=== PATIENT | male | born 1980 | race Caucasian/White ===

== ENCOUNTER 2017-11-28 14:37 | Inpatient (IN) | payer OTHER ==
[~2017-11-28] VITALS: Ht 180.3 cm; Wt 159.3 kg
[~2017-11-28 14:37] MED LIST: ALBU90OI INH; Advair Hfa 230-12 GM INH; DOXY100 PO; FLUT110OIA INH; HYDCOR1TO TOP; LEVO750 PO; LOSA25 PO; METF500 PO; Norco 5-325 Ta1 EACH PO; PRED10 PO; PRED20 PO; Prednisone20 MG PO; TIOT18 INH
[2017-11-28 16:20] LABS: BASOPHILS ABSOLUTE AUTO 0.02 K/mm3 (0.00-0.23); BASOPHILS PERCENT AUTO 0 % (0-2); EOSINOPHILS ABSOLUTE AUTO 0.02 K/mm3 (0.00-0.68); EOSINOPHILS PERCENT AUTO 0 % (0-6); Hematocrit 35.4 % (37.0-53.0); Hemoglobin 11.8 g/dL (13.5-17.5); IMMATURE GRAN ABSOLUTE AUTO 0.02 K/mm3 (0.00-0.10); IMMATURE GRAN PERCENT AUTO 0 % (0-1); LYMPHOCYTES PERCENT AUTO 11 % (21-46); MONOCYTES ABSOLUTE AUTO 0.47 K/mm3 (0.16-1.47); MONOCYTES PERCENT AUTO 5 % (4-13); Mean Corpuscular HGB Conc 33.3 g/dL (31.5-36.5); Mean Corpuscular Volume 84 fL (80-100); Mean Platelet Volume 9.2 fL (9.1-12.4); NEUTROPHILS ABSOLUTE AUTO 7.58 K/mm3 (1.96-9.15); NEUTROPHILS PERCENT AUTO 83 % (41-73); Platelet Count 208 K/mm3 (150-400); RDW Coefficient Variation 14.5 % (11.7-14.2); RDW Standard Deviation 44.8 fL (35.1-46.3); Red Blood Cell Count 4.22 M/mm3 (4.30-5.90); White Blood Cell Count 9.11 K/mm3 (4.00-11.30)
[2017-11-28 16:45] LABS: Alanine Aminotransfer (ALT/SGP 18 U/L (12-78); Albumin/Globulin Ratio 0.7 (0.8-1.8); Alk Phos 106 U/L (50-136); Anion Gap 9 mmol/L (6-16); Aspartate Aminotrans (AST/SGOT 22 U/L (12-37); Bilirubin, Total 1.7 mg/dL (0.1-1.0); Blood Urea Nitrogen 17 mg/dL (8-24); Bun/Creatinine Ratio 19.1 (12.0-20.0); CO2, Blood 24 mmol/L (21-32); Calcium, Blood 8.4 mg/dL (8.5-10.1); Chloride, Blood 97 mmol/L (98-108); Creatinine, Blood 0.89 mg/dL (0.60-1.20); Globulin, Blood 4.3 g/dL (2.2-4.0); Glomerular Filtration Rate >60 (60-); Glucose, Blood 119 mg/dL (70-99); Potassium, Blood 3.4 mmol/L (3.5-5.5); Sodium, Blood 130 mmol/L (136-145); Total Protein, Blood 7.3 g/dL (6.4-8.2)
[2017-11-28] MEDS ORDERED: AMLO5 PO (18:35)
[2017-11-28] MEDS ORDERED: ATOR40TA PO (18:35)
[2017-11-28 20:07] LABS: C-REACTIVE PROTEIN, EXT RANGE >19.000 mg/dL (0.000-0.300)
[2017-11-28] MEDS ORDERED: BUDE6HFA INH (22:28)
[2017-11-29 05:40] LABS: BASOPHILS ABSOLUTE AUTO 0.01 K/mm3 (0.00-0.23); BASOPHILS PERCENT AUTO 0 % (0-2); EOSINOPHILS ABSOLUTE AUTO 0.02 K/mm3 (0.00-0.68); EOSINOPHILS PERCENT AUTO 0 % (0-6); Hematocrit 33.3 % (37.0-53.0); Hemoglobin 10.8 g/dL (13.5-17.5); IMMATURE GRAN ABSOLUTE AUTO 0.03 K/mm3 (0.00-0.10); IMMATURE GRAN PERCENT AUTO 0 % (0-1); LYMPHOCYTES ABSOLUTE AUTO 1.31 K/mm3 (0.84-5.20); LYMPHOCYTES PERCENT AUTO 18 % (21-46); MONOCYTES ABSOLUTE AUTO 0.55 K/mm3 (0.16-1.47); MONOCYTES PERCENT AUTO 8 % (4-13); Mean Corpuscular HGB 27.4 pg (26.0-34.0); Mean Corpuscular HGB Conc 32.4 g/dL (31.5-36.5); Mean Corpuscular Volume 85 fL (80-100); Mean Platelet Volume 9.4 fL (9.1-12.4); NEUTROPHILS ABSOLUTE AUTO 5.43 K/mm3 (1.96-9.15); NEUTROPHILS PERCENT AUTO 74 % (41-73); Platelet Count 203 K/mm3 (150-400); RDW Coefficient Variation 14.4 % (11.7-14.2); RDW Standard Deviation 44.6 fL (35.1-46.3); Red Blood Cell Count 3.94 M/mm3 (4.30-5.90); White Blood Cell Count 7.35 K/mm3 (4.00-11.30)
[2017-11-29 06:03] LABS: Anion Gap 10 mmol/L (6-16); Blood Urea Nitrogen 14 mg/dL (8-24); Bun/Creatinine Ratio 16.1 (12.0-20.0); CO2, Blood 23 mmol/L (21-32); Calcium, Blood 8.1 mg/dL (8.5-10.1); Chloride, Blood 99 mmol/L (98-108); Creatinine, Blood 0.87 mg/dL (0.60-1.20); Glomerular Filtration Rate >60 (60-); Glucose, Blood 138 mg/dL (70-99); Potassium, Blood 3.7 mmol/L (3.5-5.5); Sodium, Blood 132 mmol/L (136-145)
[2017-11-30 08:29] LABS: BASOPHILS ABSOLUTE AUTO 0.03 K/mm3 (0.00-0.23); BASOPHILS PERCENT AUTO 0 % (0-2); EOSINOPHILS ABSOLUTE AUTO 0.08 K/mm3 (0.00-0.68); EOSINOPHILS PERCENT AUTO 1 % (0-6); Hematocrit 34.9 % (37.0-53.0); IMMATURE GRAN ABSOLUTE AUTO 0.06 K/mm3 (0.00-0.10); IMMATURE GRAN PERCENT AUTO 1 % (0-1); LYMPHOCYTES ABSOLUTE AUTO 1.77 K/mm3 (0.84-5.20); LYMPHOCYTES PERCENT AUTO 23 % (21-46); MONOCYTES ABSOLUTE AUTO 0.68 K/mm3 (0.16-1.47); MONOCYTES PERCENT AUTO 9 % (4-13); Mean Corpuscular HGB 27.8 pg (26.0-34.0); Mean Corpuscular HGB Conc 31.5 g/dL (31.5-36.5); Mean Platelet Volume 9.7 fL (9.1-12.4); NEUTROPHILS ABSOLUTE AUTO 5.19 K/mm3 (1.96-9.15); NEUTROPHILS PERCENT AUTO 66 % (41-73); Platelet Count 206 K/mm3 (150-400); RDW Coefficient Variation 14.7 % (11.7-14.2); RDW Standard Deviation 47.5 fL (35.1-46.3); Red Blood Cell Count 3.95 M/mm3 (4.30-5.90); White Blood Cell Count 7.81 K/mm3 (4.00-11.30)
[2017-11-30 08:30] LABS: Mean Corpuscular Volume 88 fL (80-100)
[2017-11-30 08:43] LABS: Bun/Creatinine Ratio 9.8 (12.0-20.0); Calcium, Blood 8.2 mg/dL (8.5-10.1); Creatinine, Blood 2.86 mg/dL (0.60-1.20); Potassium, Blood 3.9 mmol/L (3.5-5.5)
[2017-11-30 08:48] LABS: Vancomycin, Trough 34.7 ug/mL (5.0-10.0)
[2017-11-30 17:55] LABS: Creatinine, Blood 3.57 mg/dL (0.60-1.20); Potassium, Blood 4.4 mmol/L (3.5-5.5)
[2017-12-01 06:02] LABS: Albumin, Blood 2.6 g/dL (3.4-5.0); Anion Gap 8 mmol/L (6-16); Blood Urea Nitrogen 36 mg/dL (8-24); Bun/Creatinine Ratio 8.9 (12.0-20.0); CO2, Blood 24 mmol/L (21-32); Calcium, Blood 8.2 mg/dL (8.5-10.1); Chloride, Blood 96 mmol/L (98-108); Creatinine, Blood 4.06 mg/dL (0.60-1.20); Glomerular Filtration Rate 18 (60-); Glucose, Blood 97 mg/dL (70-99); Phosphorus, Blood 5.6 mg/dL (2.5-4.9); Potassium, Blood 4.3 mmol/L (3.5-5.5); Sodium, Blood 128 mmol/L (136-145); Vancomycin, Random 27.4 ug/mL
[2017-12-01 14:44] LABS: Albumin, Blood 2.7 g/dL (3.4-5.0); Anion Gap 11 mmol/L (6-16); Blood Urea Nitrogen 38 mg/dL (8-24); Bun/Creatinine Ratio 8.9 (12.0-20.0); CO2, Blood 21 mmol/L (21-32); CPK Creatine Kinase 17 U/L (39-308); Calcium, Blood 8.3 mg/dL (8.5-10.1); Chloride, Blood 99 mmol/L (98-108); Creatinine, Blood 4.26 mg/dL (0.60-1.20); Glomerular Filtration Rate 17 (60-); Glucose, Blood 101 mg/dL (70-99); Phosphorus, Blood 5.5 mg/dL (2.5-4.9); Potassium, Blood 4.3 mmol/L (3.5-5.5); Sodium, Blood 131 mmol/L (136-145); Uric Acid, Blood 9.5 mg/dL (3.5-7.2)
[2017-12-01 14:47] LABS: Thyroid Stimulating Hormone 0.829 uIU/mL (0.360-4.800)
[2017-12-02 05:22] LABS: BASOPHILS ABSOLUTE AUTO 0.02 K/mm3 (0.00-0.23); BASOPHILS PERCENT AUTO 0 % (0-2); EOSINOPHILS ABSOLUTE AUTO 0.11 K/mm3 (0.00-0.68); EOSINOPHILS PERCENT AUTO 1 % (0-6); Hematocrit 32.7 % (37.0-53.0); Hemoglobin 10.4 g/dL (13.5-17.5); IMMATURE GRAN ABSOLUTE AUTO 0.05 K/mm3 (0.00-0.10); IMMATURE GRAN PERCENT AUTO 1 % (0-1); LYMPHOCYTES ABSOLUTE AUTO 1.36 K/mm3 (0.84-5.20); LYMPHOCYTES PERCENT AUTO 18 % (21-46); MONOCYTES ABSOLUTE AUTO 0.56 K/mm3 (0.16-1.47); MONOCYTES PERCENT AUTO 7 % (4-13); Mean Corpuscular HGB 27.3 pg (26.0-34.0); Mean Corpuscular HGB Conc 31.8 g/dL (31.5-36.5); Mean Corpuscular Volume 86 fL (80-100); Mean Platelet Volume 9.3 fL (9.1-12.4); NEUTROPHILS PERCENT AUTO 73 % (41-73); Platelet Count 314 K/mm3 (150-400); RDW Coefficient Variation 14.6 % (11.7-14.2); RDW Standard Deviation 46.2 fL (35.1-46.3); Red Blood Cell Count 3.81 M/mm3 (4.30-5.90)
[2017-12-02 05:58] LABS: Albumin, Blood 2.6 g/dL (3.4-5.0); Anion Gap 10 mmol/L (6-16); Blood Urea Nitrogen 40 mg/dL (8-24); Bun/Creatinine Ratio 8.8 (12.0-20.0); CO2, Blood 22 mmol/L (21-32); Calcium, Blood 8.2 mg/dL (8.5-10.1); Chloride, Blood 101 mmol/L (98-108); Creatinine, Blood 4.52 mg/dL (0.60-1.20); Glomerular Filtration Rate 16 (60-); Glucose, Blood 98 mg/dL (70-99); Phosphorus, Blood 5.9 mg/dL (2.5-4.9); Potassium, Blood 4.5 mmol/L (3.5-5.5); Sodium, Blood 133 mmol/L (136-145)
[2017-12-02 11:42] LABS: Eosinophils-Raw #,Urine 0
[2017-12-02 11:43] LABS: White Blood Cells Urine Rare /hpf (0-5)
[2017-12-02 20:18] LABS: Protein, Urine Quantitative 12.9 mg/dL (0.0-11.9)
[2017-12-03 05:18] LABS: BASOPHILS ABSOLUTE AUTO 0.03 K/mm3 (0.00-0.23); BASOPHILS PERCENT AUTO 0 % (0-2); EOSINOPHILS ABSOLUTE AUTO 0.09 K/mm3 (0.00-0.68); EOSINOPHILS PERCENT AUTO 1 % (0-6); Hematocrit 31.8 % (37.0-53.0); Hemoglobin 10.3 g/dL (13.5-17.5); IMMATURE GRAN ABSOLUTE AUTO 0.08 K/mm3 (0.00-0.10); IMMATURE GRAN PERCENT AUTO 1 % (0-1); LYMPHOCYTES ABSOLUTE AUTO 1.62 K/mm3 (0.84-5.20); LYMPHOCYTES PERCENT AUTO 21 % (21-46); MONOCYTES ABSOLUTE AUTO 0.63 K/mm3 (0.16-1.47); MONOCYTES PERCENT AUTO 8 % (4-13); Mean Corpuscular HGB 27.9 pg (26.0-34.0); Mean Corpuscular HGB Conc 32.4 g/dL (31.5-36.5); Mean Corpuscular Volume 86 fL (80-100); Mean Platelet Volume 9.2 fL (9.1-12.4); NEUTROPHILS ABSOLUTE AUTO 5.33 K/mm3 (1.96-9.15); NEUTROPHILS PERCENT AUTO 69 % (41-73); Platelet Count 379 K/mm3 (150-400); RDW Coefficient Variation 14.7 % (11.7-14.2); RDW Standard Deviation 46.4 fL (35.1-46.3); Red Blood Cell Count 3.69 M/mm3 (4.30-5.90); White Blood Cell Count 7.78 K/mm3 (4.00-11.30)
[2017-12-03 05:54] LABS: Source, Urine Clean Catch
[2017-12-03 05:59] LABS: Albumin, Blood 2.8 g/dL (3.4-5.0); Anion Gap 8 mmol/L (6-16); Blood Urea Nitrogen 41 mg/dL (8-24); Bun/Creatinine Ratio 9.2 (12.0-20.0); CO2, Blood 21 mmol/L (21-32); Calcium, Blood 8.3 mg/dL (8.5-10.1); Chloride, Blood 104 mmol/L (98-108); Creatinine, Blood 4.46 mg/dL (0.60-1.20); Globulin, Blood 4.5 g/dL (2.2-4.0); Glomerular Filtration Rate 16 (60-); Glucose, Blood 98 mg/dL (70-99); Phosphorus, Blood 5.1 mg/dL (2.5-4.9); Potassium, Blood 4.8 mmol/L (3.5-5.5); Sodium, Blood 133 mmol/L (136-145); Total Protein, Blood 7.3 g/dL (6.4-8.2)
[2017-12-03 06:00] LABS: Alanine Aminotransfer (ALT/SGP 33 U/L (12-78); Albumin/Globulin Ratio 0.6 (0.8-1.8); Alk Phos 283 U/L (50-136); Aspartate Aminotrans (AST/SGOT 17 U/L (12-37); Bilirubin, Total 0.4 mg/dL (0.1-1.0)
[2017-12-03 06:22] LABS: Appearance, Urine Clear (Clear); Bilirubin, Urine Neg (Neg); Blood, Urine Neg (Neg); Color, Urine Yellow (P-Yellow); Glucose Qualitative, Urine Neg (Neg); Ketones, Urine Neg (Neg); Leukocyte Esterase, Urine Neg (Neg); Nitrite, Urine Neg (Neg); Protein, Urine Neg (Neg); Specific Gravity, Urine 1.015 (1.003-1.022); Urobilinogen, Urine NORM (Normal)
[2017-12-03 07:45] LABS: IgA 208 mg/dL (90-386); IgG 995 mg/dL (700-1600)
[2017-12-03 08:09] LABS: IgM 82 mg/dL (20-172)
[2017-12-03 09:35] LABS: RNP/SM Ab IgG <0.2 AI (<1.0)
[2017-12-03 18:40] LABS: ANCA <1:20
[2017-12-04 05:45] LABS: Albumin, Blood 2.8 g/dL (3.4-5.0); Anion Gap 8 mmol/L (6-16); Blood Urea Nitrogen 40 mg/dL (8-24); Bun/Creatinine Ratio 9.7 (12.0-20.0); CO2, Blood 20 mmol/L (21-32); Calcium, Blood 8.5 mg/dL (8.5-10.1); Chloride, Blood 105 mmol/L (98-108); Creatinine, Blood 4.12 mg/dL (0.60-1.20); Glomerular Filtration Rate 17 (60-); Glucose, Blood 93 mg/dL (70-99); Phosphorus, Blood 5.2 mg/dL (2.5-4.9); Potassium, Blood 5.5 mmol/L (3.5-5.5); Sodium, Blood 133 mmol/L (136-145)
[2017-12-04 05:58] LABS: C3 161 mg/dL
[2017-12-04 06:27] LABS: Source, Urine Voided
[2017-12-04 07:14] LABS: Bilirubin, Urine Neg (Neg); Blood, Urine Neg (Neg); Glucose Qualitative, Urine Neg (Neg); Ketones, Urine Neg (Neg); Leukocyte Esterase, Urine Neg (Neg); Nitrite, Urine Neg (Neg); Protein, Urine Neg (Neg); Urobilinogen, Urine NORM (Normal)
[2017-12-04 07:16] LABS: Color, Urine Yellow (P-Yellow)
[2017-12-04 07:17] LABS: Appearance, Urine Clear (Clear)
[2017-12-04 07:25] LABS: Sodium, Urine, Random 25 mmol/L (20-110)
[2017-12-04 07:29] LABS: Osmolality, Urine 151 mos/kg (15-1400)
[2017-12-04 08:07] LABS: Eosinophils-Raw #,Urine 0
[2017-12-04 08:08] LABS: White Blood Cells Urine Rare /hpf (0-5)
[2017-12-04 12:22] LABS: Albumin 2.8 g/dL (3.5-5.0); Protein, Total 6.3 g/dL (6.2-8.2)
[2017-12-05 05:42] LABS: BASOPHILS ABSOLUTE AUTO 0.05 K/mm3 (0.00-0.23); BASOPHILS PERCENT AUTO 1 % (0-2); EOSINOPHILS ABSOLUTE AUTO 0.17 K/mm3 (0.00-0.68); EOSINOPHILS PERCENT AUTO 2 % (0-6); Hematocrit 33.2 % (37.0-53.0); Hemoglobin 10.6 g/dL (13.5-17.5); IMMATURE GRAN ABSOLUTE AUTO 0.04 K/mm3 (0.00-0.10); IMMATURE GRAN PERCENT AUTO 1 % (0-1); LYMPHOCYTES ABSOLUTE AUTO 1.87 K/mm3 (0.84-5.20); LYMPHOCYTES PERCENT AUTO 23 % (21-46); MONOCYTES ABSOLUTE AUTO 0.59 K/mm3 (0.16-1.47); MONOCYTES PERCENT AUTO 7 % (4-13); Mean Corpuscular HGB 27.9 pg (26.0-34.0); Mean Corpuscular HGB Conc 31.9 g/dL (31.5-36.5); Mean Corpuscular Volume 87 fL (80-100); Mean Platelet Volume 8.6 fL (9.1-12.4); NEUTROPHILS ABSOLUTE AUTO 5.42 K/mm3 (1.96-9.15); NEUTROPHILS PERCENT AUTO 67 % (41-73); Platelet Count 518 K/mm3 (150-400); RDW Coefficient Variation 14.6 % (11.7-14.2); RDW Standard Deviation 47.1 fL (35.1-46.3); White Blood Cell Count 8.14 K/mm3 (4.00-11.30)
[2017-12-05 05:45] LABS: Alanine Aminotransfer (ALT/SGP 41 U/L (12-78); Albumin, Blood 2.8 g/dL (3.4-5.0); Albumin/Globulin Ratio 0.7 (0.8-1.8); Alk Phos 277 U/L (50-136); Anion Gap 9 mmol/L (6-16); Aspartate Aminotrans (AST/SGOT 18 U/L (12-37); Bilirubin, Total 0.5 mg/dL (0.1-1.0); Blood Urea Nitrogen 38 mg/dL (8-24); Bun/Creatinine Ratio 9.8 (12.0-20.0); CO2, Blood 19 mmol/L (21-32); Calcium, Blood 8.1 mg/dL (8.5-10.1); Chloride, Blood 107 mmol/L (98-108); Creatinine, Blood 3.86 mg/dL (0.60-1.20); Globulin, Blood 4.3 g/dL (2.2-4.0); Glomerular Filtration Rate 19 (60-); Glucose, Blood 94 mg/dL (70-99); Phosphorus, Blood 5.8 mg/dL (2.5-4.9); Sodium, Blood 135 mmol/L (136-145); Total Protein, Blood 7.1 g/dL (6.4-8.2)
[2017-12-05 13:16] LABS: Bun/Creatinine Ratio 9.6 (12.0-20.0); Calcium, Blood 8.6 mg/dL (8.5-10.1); Creatinine, Blood 3.87 mg/dL (0.60-1.20); Potassium, Blood 5.5 mmol/L (3.5-5.5)
[2017-12-06 05:10] LABS: Albumin, Blood 2.7 g/dL (3.4-5.0); Anion Gap 11 mmol/L (6-16); Blood Urea Nitrogen 38 mg/dL (8-24); Bun/Creatinine Ratio 10.1 (12.0-20.0); CO2, Blood 21 mmol/L (21-32); Calcium, Blood 8.4 mg/dL (8.5-10.1); Chloride, Blood 104 mmol/L (98-108); Creatinine, Blood 3.77 mg/dL (0.60-1.20); Glomerular Filtration Rate 19 (60-); Glucose, Blood 93 mg/dL (70-99); Potassium, Blood 5.5 mmol/L (3.5-5.5); Sodium, Blood 136 mmol/L (136-145)
[2018-08-24] MEDS ORDERED: Augmentin 875-1 EACH PO (19:16)
[2018-08-24] MEDS ORDERED: Prednisone20 MG PO (19:16)
== END 2017-12-06 11:36 | disposition home or self-care (01) | DRG 871 ==
LOC: ER 14:37 → MEDS 21:03 → ENPENDDIS 12-06 10:00 → MEDS 12-06 11:36
PROVIDERS: Internal Medicine; Physician Assistant
DX: A41.9 Sepsis, unspecified organism (principal); N17.0 Acute kidney failure with tubular necrosis; B37.0 Candidal stomatitis; Z68.42 Body mass index [BMI] 45.0-49.9, adult; L02.416 Cutaneous abscess of left lower limb; L03.116 Cellulitis of left lower limb; E87.1 Hypo-osmolality and hyponatremia; E11.40 Type 2 diabetes mellitus with diabetic neuropathy, unspecified; E66.01 Morbid (severe) obesity due to excess calories; Z59.0 Homelessness; G47.33 Obstructive sleep apnea (adult) (pediatric); J44.9 Chronic obstructive pulmonary disease, unspecified; F17.210 Nicotine dependence, cigarettes, uncomplicated
CPT/HCPCS: 36415; 71046; 73590; 76770; 80048; 80053; 80069; 80202; 81003; 81050; 82550; 82784; 82947; 83516; 83605; 83735; 83880; 83935; 84100; 84156; 84165; 84300; 84443; 84550; 85025; 86140; 86160; 86225; 86235; 86256; 86334; 87040; 87205; 93005; 93010; 93971; 94640; 94760; 96374; 96375; 99285; J0610; J0692; J0696; J1170; J1650; J1815; J1940; J2405; J3010; J3370; J7030; J7050; J7120; Q0163

== ENCOUNTER → 2018-01-22 | Outpatient (CLI) | payer OTHER ==
[~2018-01-22] MED LIST changes: +AMLO5 PO; +ATOR40TA PO; +BUDE6HFA INH; +CLOB.05TO TOP; +IBUP800 PO
[2018-01-22 14:09] LABS: Appearance, Urine Clear (Clear); Bilirubin, Urine Neg (Neg); Blood, Urine Neg (Neg); Color, Urine Yellow (P-Yellow); Glucose Qualitative, Urine Neg (Neg); Ketones, Urine Neg (Neg); Leukocyte Esterase, Urine 1+ (Neg); Nitrite, Urine Neg (Neg); Protein, Urine Neg (Neg); Urobilinogen, Urine NORM (Normal)
[2018-01-22 14:24] LABS: Red Blood Cells, Urine 0-2 /hpf (0-2); White Blood Cells, Urine 0-2 /hpf (0-5)
[2018-01-22 14:25] LABS: Bacteria Few /hpf; Squamous Epithelial Cells Rare /hpf (Few)
== END ==
LOC: LAB SHORT 12:42 → OLS 12:42
PROVIDERS: Internal Medicine
DX: N17.9 Acute kidney failure, unspecified (principal)
CPT/HCPCS: 81001; 87077; 87086; 87186

== ENCOUNTER → 2018-01-23 | Outpatient (CLI) | payer OTHER ==
[~2018-01-23] MED LIST changes: -CLOB.05TO TOP; -IBUP800 PO
== END ==
LOC: LAB 14:20 → LAB SHORT 14:20
DX: L02.213 Cutaneous abscess of chest wall (principal)
CPT/HCPCS: 87070; 87075; 87077; 87147; 87186; 87205

== ENCOUNTER 2018-02-08 21:29 | Emergency (ER) | payer OTHER ==
[~2018-02-08] VITALS: Ht 180.3 cm; Wt 148.8 kg
[2018-02-09] MEDS ORDERED: CLOB.05TO TOP (00:04)
[2018-02-09] MEDS ORDERED: IBUP800 PO (00:04)
== END 2018-02-09 00:25 | disposition home or self-care (01) ==
LOC: ER 21:29
DX: M17.11 Unilateral primary osteoarthritis, right knee (principal); L23.7 Allergic contact dermatitis due to plants, except food; F17.200 Nicotine dependence, unspecified, uncomplicated
CPT/HCPCS: 96372; 99283; J1885

== ENCOUNTER 2018-02-20 15:28 | Emergency (ER) | payer OTHER ==
[~2018-02-20] VITALS: Ht 180.3 cm; Wt 148.3 kg
[~2018-02-20 15:28] MED LIST changes: +CLOB.05TO TOP; +IBUP800 PO
[2018-02-20] MEDS ORDERED: TRIA15CR3 TOP (15:53)
[2018-02-20] MEDS ORDERED: HYDHCL25 PO (15:53)
== END 2018-02-20 16:02 | disposition home or self-care (01) ==
LOC: ER 15:28
DX: L30.9 Dermatitis, unspecified (principal); J45.909 Unspecified asthma, uncomplicated; F17.200 Nicotine dependence, unspecified, uncomplicated; Z79.899 Other long term (current) drug therapy; Z79.51 Long term (current) use of inhaled steroids
CPT/HCPCS: J3301

== ENCOUNTER → 2018-04-01 | Outpatient (CLI) | payer OTHER ==
[~2018-04-01] MED LIST changes: +HYDHCL25 PO; +TRIA15CR3 TOP
== END ==
LOC: LAB 09:00 → LAB SHORT 09:00
DX: L03.116 Cellulitis of left lower limb (principal)
CPT/HCPCS: 87070; 87077; 87147; 87186; 87205

== ENCOUNTER → 2018-07-17 | Outpatient (CLI) | payer OTHER ==
[2018-07-17 17:27] LABS: Creatinine, Urine Random 84.5 mg/dL (27.00-270.00)
[2018-07-17 17:29] LABS: Microalb/Creat Ratio UR, Rand 48.521 mg/g (0.000-30.000)
== END ==
LOC: LAB 08:29 → LAB SHORT 08:29
PROVIDERS: Nurse Practitioner Family
DX: E11.9 Type 2 diabetes mellitus without complications (principal)
CPT/HCPCS: 82043; 82570

== ENCOUNTER 2018-09-09 14:25 | Emergency (ER) | payer OTHER ==
[~2018-09-09] VITALS: Ht 180.3 cm; Wt 152.4 kg
[~2018-09-09 14:25] MED LIST changes: +Augmentin 875-1 EACH PO
[2018-09-09] MEDS ORDERED: Keflex500 MG PO (15:07)
== END 2018-09-09 15:07 | disposition home or self-care (01) ==
LOC: ER 14:25
DX: L03.116 Cellulitis of left lower limb (principal); E11.9 Type 2 diabetes mellitus without complications; I10 Essential (primary) hypertension; F17.210 Nicotine dependence, cigarettes, uncomplicated; Z88.8 Allergy status to other drugs, medicaments and biological substances; Z79.899 Other long term (current) drug therapy
CPT/HCPCS: 99282

== ENCOUNTER 2018-09-14 11:50 | Emergency (ER) | payer OTHER ==
[~2018-09-14] VITALS: Ht 180.3 cm; Wt 149.7 kg
[~2018-09-14 11:50] MED LIST changes: +Keflex500 MG PO
[2018-09-14 12:34] LABS: BASOPHILS ABSOLUTE AUTO 0.04 K/mm3 (0.00-0.23); BASOPHILS PERCENT AUTO 0 % (0-2); EOSINOPHILS ABSOLUTE AUTO 0.04 K/mm3 (0.00-0.68); EOSINOPHILS PERCENT AUTO 0 % (0-6); Hematocrit 39.9 % (37.0-53.0); Hemoglobin 13.1 g/dL (13.5-17.5); IMMATURE GRAN ABSOLUTE AUTO 0.03 K/mm3 (0.00-0.10); IMMATURE GRAN PERCENT AUTO 0 % (0-1); LYMPHOCYTES ABSOLUTE AUTO 2.04 K/mm3 (0.84-5.20); LYMPHOCYTES PERCENT AUTO 18 % (21-46); MONOCYTES ABSOLUTE AUTO 0.69 K/mm3 (0.16-1.47); MONOCYTES PERCENT AUTO 6 % (4-13); Mean Corpuscular HGB 30.4 pg (26.0-34.0); Mean Corpuscular HGB Conc 32.8 g/dL (31.5-36.5); Mean Corpuscular Volume 93 fL (80-100); Mean Platelet Volume 8.3 fL (9.1-12.4); NEUTROPHILS ABSOLUTE AUTO 8.43 K/mm3 (1.96-9.15); NEUTROPHILS PERCENT AUTO 75 % (41-73); Platelet Count 341 K/mm3 (150-400); RDW Coefficient Variation 14.1 % (11.7-14.2); RDW Standard Deviation 47.8 fL (35.1-46.3); Red Blood Cell Count 4.31 M/mm3 (4.30-5.90); White Blood Cell Count 11.27 K/mm3 (4.00-11.30)
[2018-09-14 12:56] LABS: Alanine Aminotransfer (ALT/SGP 35 U/L (12-78); Albumin, Blood 3.6 g/dL (3.4-5.0); Albumin/Globulin Ratio 0.9 (0.8-1.8); Alk Phos 97 U/L (50-136); Anion Gap 7 mmol/L (6-16); Aspartate Aminotrans (AST/SGOT 9 U/L (12-37); Bilirubin, Total 0.4 mg/dL (0.1-1.0); Blood Urea Nitrogen 8 mg/dL (8-24); CO2, Blood 26 mmol/L (21-32); Calcium, Blood 8.7 mg/dL (8.5-10.1); Chloride, Blood 103 mmol/L (98-108); Creatinine, Blood 0.88 mg/dL (0.60-1.20); Globulin, Blood 3.9 g/dL (2.2-4.0); Glomerular Filtration Rate >60 (60-); Glucose, Blood 80 mg/dL (70-99); Potassium, Blood 3.8 mmol/L (3.5-5.5); Sodium, Blood 136 mmol/L (136-145); Total Protein, Blood 7.5 g/dL (6.4-8.2)
[2018-09-14] MEDS ORDERED: CEPH500 PO (13:19)
[2018-09-14] MEDS ORDERED: Bactrim Ds Tab1 EACH PO (13:19)
== END 2018-09-14 13:34 | disposition home or self-care (01) ==
LOC: ER 11:50
PROVIDERS: Physician Assistant
DX: L03.116 Cellulitis of left lower limb (principal); L03.115 Cellulitis of right lower limb; R60.0 Localized edema; Z79.84 Long term (current) use of oral hypoglycemic drugs; J45.909 Unspecified asthma, uncomplicated; E11.9 Type 2 diabetes mellitus without complications; I10 Essential (primary) hypertension; F17.210 Nicotine dependence, cigarettes, uncomplicated
CPT/HCPCS: 36415; 80053; 85025; 99283

== ENCOUNTER 2018-11-27 15:53 | Emergency (ER) | payer OTHER ==
[~2018-11-27] VITALS: Ht 180.3 cm; Wt 156.0 kg
[~2018-11-27 15:53] MED LIST changes: +Bactrim Ds Tab1 EACH PO; +CEPH500 PO
[2018-11-27] MEDS ORDERED: Cleocin HCl300 MG PO (16:16)
== END 2018-11-27 16:22 | disposition home or self-care (01) ==
LOC: ER 15:53
DX: I87.2 Venous insufficiency (chronic) (peripheral) (principal); L03.116 Cellulitis of left lower limb; L03.115 Cellulitis of right lower limb; Z88.8 Allergy status to other drugs, medicaments and biological substances; Z79.899 Other long term (current) drug therapy; J45.909 Unspecified asthma, uncomplicated; E11.9 Type 2 diabetes mellitus without complications; I10 Essential (primary) hypertension; F17.210 Nicotine dependence, cigarettes, uncomplicated
CPT/HCPCS: 99283

== ENCOUNTER 2019-02-28 17:52 | Emergency (ER) | payer OTHER ==
[~2019-02-28] VITALS: Ht 180.3 cm; Wt 161.5 kg
[~2019-02-28 17:52] MED LIST changes: +Cleocin HCl300 MG PO
[2019-02-28 19:34] LABS: BASOPHILS ABSOLUTE AUTO 0.04 K/mm3 (0.00-0.23); BASOPHILS PERCENT AUTO 1 % (0-2); EOSINOPHILS ABSOLUTE AUTO 0.21 K/mm3 (0.00-0.68); EOSINOPHILS PERCENT AUTO 2 % (0-6); Hemoglobin 12.2 g/dL (13.5-17.5); IMMATURE GRAN ABSOLUTE AUTO 0.02 K/mm3 (0.00-0.10); IMMATURE GRAN PERCENT AUTO 0 % (0-1); LYMPHOCYTES ABSOLUTE AUTO 1.99 K/mm3 (0.84-5.20); LYMPHOCYTES PERCENT AUTO 23 % (21-46); MONOCYTES ABSOLUTE AUTO 0.65 K/mm3 (0.16-1.47); MONOCYTES PERCENT AUTO 7 % (4-13); Mean Corpuscular HGB 29.1 pg (26.0-34.0); Mean Corpuscular Volume 88 fL (80-100); Mean Platelet Volume 8.4 fL (9.1-12.4); NEUTROPHILS ABSOLUTE AUTO 5.83 K/mm3 (1.96-9.15); NEUTROPHILS PERCENT AUTO 67 % (41-73); Platelet Count 290 K/mm3 (150-400); RDW Coefficient Variation 14.1 % (11.7-14.2); RDW Standard Deviation 45.2 fL (35.1-46.3); Red Blood Cell Count 4.19 M/mm3 (4.30-5.90); White Blood Cell Count 8.74 K/mm3 (4.00-11.30)
[2019-02-28 19:50] LABS: Source, Urine Voided
[2019-02-28 19:58] LABS: Bilirubin, Urine Neg (Neg); Blood, Urine Neg (Neg); Glucose Qualitative, Urine Neg (Neg); Ketones, Urine Neg (Neg); Leukocyte Esterase, Urine Neg (Neg); Nitrite, Urine Neg (Neg); Protein, Urine Neg (Neg); Urobilinogen, Urine NORM (Normal)
[2019-02-28 19:58] LABS: Alanine Aminotransfer (ALT/SGP 23 U/L (12-78); Albumin, Blood 3.4 g/dL (3.4-5.0); Albumin/Globulin Ratio 0.9 (0.8-1.8); Alk Phos 112 U/L (50-136); Anion Gap 6 mmol/L (6-16); Aspartate Aminotrans (AST/SGOT 10 U/L (12-37); Bilirubin, Total 0.3 mg/dL (0.1-1.0); Blood Urea Nitrogen 8 mg/dL (8-24); CO2, Blood 25 mmol/L (21-32); Calcium, Blood 8.4 mg/dL (8.5-10.1); Chloride, Blood 102 mmol/L (98-108); Globulin, Blood 3.6 g/dL (2.2-4.0); Glomerular Filtration Rate >60 (60-); Glucose, Blood 109 mg/dL (70-99); Potassium, Blood 3.6 mmol/L (3.5-5.5); Sodium, Blood 133 mmol/L (136-145); Troponin I <0.015 ng/mL (0.000-0.040)
[2019-02-28 20:04] LABS: Appearance, Urine Clear (Clear); Color, Urine Yellow (P-Yellow)
== END 2019-02-28 21:27 | disposition home or self-care (01) ==
LOC: ER 17:52
PROVIDERS: Emergency Medicine
DX: I89.0 Lymphedema, not elsewhere classified (principal); E66.9 Obesity, unspecified; J44.9 Chronic obstructive pulmonary disease, unspecified; Z88.8 Allergy status to other drugs, medicaments and biological substances; Z79.899 Other long term (current) drug therapy; E78.5 Hyperlipidemia, unspecified; E11.9 Type 2 diabetes mellitus without complications; I10 Essential (primary) hypertension; F17.210 Nicotine dependence, cigarettes, uncomplicated
CPT/HCPCS: 36415; 71046; 80053; 81003; 83880; 84484; 85025; 93005; 93010; 99284-25

== ENCOUNTER → 2019-03-03 | Outpatient (CLI) | payer OTHER | END | disposition home or self-care (01) | LOC: LAB 15:34 → LAB SHORT 15:34 | DX: L02.213 Cutaneous abscess of chest wall (principal) | CPT/HCPCS: 87070; 87075; 87077; 87147; 87186; 87205 ==

== ENCOUNTER 2019-04-19 00:20 | Day surgery (SDC) | payer OTHER | END 2019-04-19 23:10 | disposition home or self-care (01) | LOC: WOUND 00:20 | DX: E11.622 Type 2 diabetes mellitus with other skin ulcer (principal); L97.121 Non-pressure chronic ulcer of left thigh limited to breakdown of skin; E11.42 Type 2 diabetes mellitus with diabetic polyneuropathy; E11.51 Type 2 diabetes mellitus with diabetic peripheral angiopathy without gangrene; I73.9 Peripheral vascular disease, unspecified; I10 Essential (primary) hypertension; G47.33 Obstructive sleep apnea (adult) (pediatric); E78.5 Hyperlipidemia, unspecified; F17.200 Nicotine dependence, unspecified, uncomplicated | CPT/HCPCS: G0463 ==

== ENCOUNTER 2019-05-28 13:16 | Emergency (ER) | payer OTHER ==
[~2019-05-28] VITALS: Ht 180.3 cm; Wt 161.5 kg
[2019-05-28 14:28] LABS: Source, Urine Clean Catch
[2019-05-28 14:56] LABS: Bilirubin, Urine Neg (Neg); Blood, Urine Neg (Neg); Glucose Qualitative, Urine Neg (Neg); Ketones, Urine Neg (Neg); Leukocyte Esterase, Urine Neg (Neg); Nitrite, Urine Neg (Neg); Protein, Urine Neg (Neg); Urobilinogen, Urine NORM (Normal)
[2019-05-28 15:10] LABS: Appearance, Urine Clear (Clear); Color, Urine Yellow (P-Yellow)
[2019-05-28 15:21] LABS: BASOPHILS ABSOLUTE AUTO 0.05 K/mm3 (0.00-0.23); BASOPHILS PERCENT AUTO 1 % (0-2); EOSINOPHILS ABSOLUTE AUTO 0.15 K/mm3 (0.00-0.68); EOSINOPHILS PERCENT AUTO 2 % (0-6); Hematocrit 40.1 % (37.0-53.0); Hemoglobin 13.1 g/dL (13.5-17.5); IMMATURE GRAN ABSOLUTE AUTO 0.02 K/mm3 (0.00-0.10); IMMATURE GRAN PERCENT AUTO 0 % (0-1); LYMPHOCYTES PERCENT AUTO 21 % (21-46); MONOCYTES ABSOLUTE AUTO 0.53 K/mm3 (0.16-1.47); MONOCYTES PERCENT AUTO 7 % (4-13); Mean Corpuscular HGB 28.9 pg (26.0-34.0); Mean Corpuscular HGB Conc 32.7 g/dL (31.5-36.5); Mean Corpuscular Volume 89 fL (80-100); Mean Platelet Volume 8.9 fL (9.1-12.4); NEUTROPHILS ABSOLUTE AUTO 5.38 K/mm3 (1.96-9.15); NEUTROPHILS PERCENT AUTO 70 % (41-73); Platelet Count 315 K/mm3 (150-400); RDW Coefficient Variation 14.1 % (11.7-14.2); RDW Standard Deviation 45.1 fL (35.1-46.3); Red Blood Cell Count 4.53 M/mm3 (4.30-5.90); White Blood Cell Count 7.73 K/mm3 (4.00-11.30)
[2019-05-28 15:48] LABS: Alanine Aminotransfer (ALT/SGP 28 U/L (12-78); Albumin, Blood 3.5 g/dL (3.4-5.0); Albumin/Globulin Ratio 0.9 (0.8-1.8); Alk Phos 115 U/L (50-136); Anion Gap 6 mmol/L (6-16); Aspartate Aminotrans (AST/SGOT 16 U/L (12-37); Bilirubin, Total 0.4 mg/dL (0.1-1.0); Blood Urea Nitrogen 8 mg/dL (8-24); Bun/Creatinine Ratio 8.9 (12.0-20.0); CO2, Blood 26 mmol/L (21-32); Calcium, Blood 8.6 mg/dL (8.5-10.1); Chloride, Blood 100 mmol/L (98-108); Globulin, Blood 4.1 g/dL (2.2-4.0); Glomerular Filtration Rate >60 (60-); Glucose, Blood 100 mg/dL (70-99); Potassium, Blood 4.3 mmol/L (3.5-5.5); Sodium, Blood 132 mmol/L (136-145); Total Protein, Blood 7.6 g/dL (6.4-8.2)
== END 2019-05-28 18:03 | disposition home or self-care (01) ==
LOC: ER 13:16
PROVIDERS: Physician Assistant
DX: R20.0 Anesthesia of skin (principal); E11.9 Type 2 diabetes mellitus without complications; I10 Essential (primary) hypertension; J45.909 Unspecified asthma, uncomplicated; F17.210 Nicotine dependence, cigarettes, uncomplicated; Z88.8 Allergy status to other drugs, medicaments and biological substances; Z79.899 Other long term (current) drug therapy
CPT/HCPCS: 36415; 80053; 81003; 85025; 99283

== ENCOUNTER → 2019-06-30 | Outpatient (CLI) | payer OTHER | END | disposition home or self-care (01) | LOC: LAB 13:48 → LAB SHORT 13:48 | DX: L02.415 Cutaneous abscess of right lower limb (principal) | CPT/HCPCS: 87070; 87075; 87077; 87147; 87186; 87205 ==

== ENCOUNTER 2019-08-23 18:05 | Emergency (ER) | payer OTHER ==
[~2019-08-23] VITALS: Ht 180.3 cm; Wt 155.6 kg
[~2019-08-23 18:05] MED LIST changes: +SPIRIVA RESPIMAT4 GM INH; -TIOT18 INH
[2019-08-23] MEDS ORDERED: Potassium Chlo20 ME1 PO (18:40)
[2019-08-23] MEDS ORDERED: Dyazide 37.5-21 EACH PO (18:41)
[2019-08-23] MEDS ORDERED: Prednisone20 MG PO (19:15)
[2019-08-24] MEDS ORDERED: Xylocaine5 M1 TOP (20:18)
[2019-08-24] MEDS ORDERED: NEURONTIN300 MG PO (20:19)
== END 2019-08-23 19:21 | disposition home or self-care (01) ==
LOC: ER 18:05
DX: J45.901 Unspecified asthma with (acute) exacerbation (principal); E11.9 Type 2 diabetes mellitus without complications; I10 Essential (primary) hypertension; G47.30 Sleep apnea, unspecified; F17.210 Nicotine dependence, cigarettes, uncomplicated; Z88.8 Allergy status to other drugs, medicaments and biological substances; Z79.899 Other long term (current) drug therapy; Z79.51 Long term (current) use of inhaled steroids
CPT/HCPCS: 93005; 93010; 94640; 99283-25; J1100

== ENCOUNTER 2019-08-24 16:30 | Inpatient (IN) | payer OTHER ==
[~2019-08-24] VITALS: Ht 180.3 cm; Wt 155.6 kg
[~2019-08-24 16:30] MED LIST changes: +Dyazide 37.5-21 EACH PO; +Potassium Chlo20 ME1 PO
[2019-08-24 17:15] LABS: BASOPHILS ABSOLUTE AUTO 0.02 K/mm3 (0.00-0.23); BASOPHILS PERCENT AUTO 0 % (0-2); EOSINOPHILS ABSOLUTE AUTO 0.01 K/mm3 (0.00-0.68); EOSINOPHILS PERCENT AUTO 0 % (0-6); Hematocrit 37.8 % (37.0-53.0); Hemoglobin 12.5 g/dL (13.5-17.5); IMMATURE GRAN ABSOLUTE AUTO 0.08 K/mm3 (0.00-0.10); IMMATURE GRAN PERCENT AUTO 1 % (0-1); LYMPHOCYTES ABSOLUTE AUTO 0.96 K/mm3 (0.84-5.20); LYMPHOCYTES PERCENT AUTO 8 % (21-46); MONOCYTES ABSOLUTE AUTO 0.56 K/mm3 (0.16-1.47); MONOCYTES PERCENT AUTO 4 % (4-13); Mean Corpuscular HGB 30.3 pg (26.0-34.0); Mean Corpuscular HGB Conc 33.1 g/dL (31.5-36.5); Mean Corpuscular Volume 92 fL (80-100); Mean Platelet Volume 8.6 fL (9.1-12.4); NEUTROPHILS ABSOLUTE AUTO 11.06 K/mm3 (1.96-9.15); NEUTROPHILS PERCENT AUTO 87 % (41-73); Platelet Count 348 K/mm3 (150-400); RDW Coefficient Variation 14.4 % (11.7-14.2); RDW Standard Deviation 47.9 fL (35.1-46.3); Red Blood Cell Count 4.12 M/mm3 (4.30-5.90); White Blood Cell Count 12.69 K/mm3 (4.00-11.30)
[2019-08-24 17:41] LABS: Alanine Aminotransfer (ALT/SGP 27 U/L (12-78); Albumin, Blood 3.4 g/dL (3.4-5.0); Albumin/Globulin Ratio 0.8 (0.8-1.8); Alk Phos 110 U/L (50-136); Anion Gap 9 mmol/L (6-16); Aspartate Aminotrans (AST/SGOT 9 U/L (12-37); Bilirubin, Total 0.3 mg/dL (0.1-1.0); Blood Urea Nitrogen 14 mg/dL (8-24); CO2, Blood 24 mmol/L (21-32); Calcium, Blood 8.7 mg/dL (8.5-10.1); Chloride, Blood 104 mmol/L (98-108); Creatinine, Blood 1.08 mg/dL (0.60-1.20); Globulin, Blood 4.2 g/dL (2.2-4.0); Glomerular Filtration Rate >60 (60-); Glucose, Blood 158 mg/dL (70-99); Potassium, Blood 4.1 mmol/L (3.5-5.5); Sodium, Blood 137 mmol/L (136-145); Total Protein, Blood 7.6 g/dL (6.4-8.2); Troponin I <0.015 ng/mL (0.000-0.040)
[2019-08-24] MEDS ORDERED: Xylocaine5 M1 TOP (20:18)
[2019-08-24] MEDS ORDERED: NEURONTIN300 MG PO (20:19)
--- NOTE | 2019-08-25 00:52 | NUR ---
38 YR OLD MALE ADMITTED TO THE FLOOR FROM THE ED, ED NURSE REPORTED PT "HOMELESS" AND A SMOKER. PT WT 360 LBS PER BED SCALE. TEMP ELEVATED AND RESPIRATIONS RAPID. VEWS SCORE 3. DENIED DISTRESS. ENCOURAGED TO REST IN THE ROOM, BUT PT REFUSED AND WENT OUT TO SMOKE AGAIN. RETURNED LATER, RESPS LESS RAPID. PLACED ON MED TELE. TELE - SINUS RHYTHM AT 95, AFFECT IMPROVED. CONTACT ISOLATION PER MD ORDERS FOR WOUND. PT DENIED ANY WOUNDS, ALLOWED NURSE TO CHECK HIS HEELS, NOTED HEES CALOUSED WITH SOME CRACKING, BUT PT REFUSED TO REMOVE CLOTHING. ORIENTED TO CALL LIGHT/ROOM. WILL CONTINUE TO MONITOR.
--- NOTE | 2019-08-25 05:39 | NUR ---
Pt has been sleeping most of shift since returning to room after an outside smoke break. Seemed to be more calm. HR less rapid, resps slower, but still shallow. Temp 98.3 F. VEWS score down from 3 to 2. Call light in reach. Isolation precautions continue.
[2019-08-25 05:42] LABS: Hematocrit 36.4 % (37.0-53.0); Hemoglobin 11.7 g/dL (13.5-17.5); Mean Corpuscular HGB 29.3 pg (26.0-34.0); Mean Corpuscular HGB Conc 32.1 g/dL (31.5-36.5); Mean Corpuscular Volume 91 fL (80-100); Mean Platelet Volume 8.9 fL (9.1-12.4); Platelet Count 345 K/mm3 (150-400); RDW Coefficient Variation 14.4 % (11.7-14.2); RDW Standard Deviation 47.8 fL (35.1-46.3); White Blood Cell Count 12.95 K/mm3 (4.00-11.30)
[2019-08-25 05:56] LABS: Alanine Aminotransfer (ALT/SGP 32 U/L (12-78); Albumin, Blood 3.3 g/dL (3.4-5.0); Albumin/Globulin Ratio 0.9 (0.8-1.8); Alk Phos 94 U/L (50-136); Anion Gap 6 mmol/L (6-16); Aspartate Aminotrans (AST/SGOT 14 U/L (12-37); Bilirubin, Total 0.1 mg/dL (0.1-1.0); Blood Urea Nitrogen 16 mg/dL (8-24); Bun/Creatinine Ratio 13.9 (12.0-20.0); CO2, Blood 28 mmol/L (21-32); Calcium, Blood 8.5 mg/dL (8.5-10.1); Chloride, Blood 106 mmol/L (98-108); Creatinine, Blood 1.15 mg/dL (0.60-1.20); Globulin, Blood 3.8 g/dL (2.2-4.0); Glomerular Filtration Rate >60 (60-); Glucose, Blood 126 mg/dL (70-99); Potassium, Blood 3.8 mmol/L (3.5-5.5); Sodium, Blood 140 mmol/L (136-145); Total Protein, Blood 7.1 g/dL (6.4-8.2)
--- NOTE | 2019-08-25 06:07 | NUR ---
Noted pt having short, gasping resps while sleeping. notidied. Orders obtained for Cpap and O2 with titration. Placed on O2 per NC at 2L/min. HOB elevated. Will monitor - JCRN
--- NOTE | 2019-08-25 16:43 | NUR ---
SHIFT SUMMARY NO ACUTE CHANGES THIS SHIFT. PT HAS DENIED PAIN DURING THE SHIFT. PT HAS A GOOD APETITE THIS SHIFT. PT HAS BEEN OUT SMOKING MUILTIPLE TIMES DURING THE SHIFT, THIS RN OFFERED A NICOTINE PATCH AND PT DECLINED. CALL LIGHT WITHIN REACH. WILL COUNTINUE TO MONITOR THE REMAINING OF THE SHIFT. WILL REPORT TO NIA RN.
--- NOTE | 2019-08-26 05:34 | NUR ---
SHIFT SUMMARY NO ACUTE CHANGES THIS SHIFT. AOX4. VSS. DENIES PAIN OR DYSPNEA. TELE IN PLACE, RUNNING NSR W/HR 90. CBG @ 101. PT WENT OUT MULTIPLE TIMES LAST NIGHT TO SMOKE. CALL LIGHT IN REACH & I WILL CONTINUE TO MONITOR UNTIL DAY RN ASSUMES CARE.
[2019-08-26 05:56] LABS: BASOPHILS ABSOLUTE AUTO 0.07 K/mm3 (0.00-0.23); BASOPHILS PERCENT AUTO 1 % (0-2); EOSINOPHILS ABSOLUTE AUTO 0.07 K/mm3 (0.00-0.68); EOSINOPHILS PERCENT AUTO 1 % (0-6); Hematocrit 37.9 % (37.0-53.0); IMMATURE GRAN ABSOLUTE AUTO 0.04 K/mm3 (0.00-0.10); IMMATURE GRAN PERCENT AUTO 0 % (0-1); LYMPHOCYTES ABSOLUTE AUTO 3.07 K/mm3 (0.84-5.20); LYMPHOCYTES PERCENT AUTO 26 % (21-46); MONOCYTES ABSOLUTE AUTO 0.75 K/mm3 (0.16-1.47); MONOCYTES PERCENT AUTO 6 % (4-13); Mean Corpuscular HGB 29.3 pg (26.0-34.0); Mean Corpuscular HGB Conc 31.7 g/dL (31.5-36.5); Mean Corpuscular Volume 93 fL (80-100); Mean Platelet Volume 8.6 fL (9.1-12.4); NEUTROPHILS ABSOLUTE AUTO 7.99 K/mm3 (1.96-9.15); NEUTROPHILS PERCENT AUTO 67 % (41-73); Platelet Count 343 K/mm3 (150-400); RDW Coefficient Variation 14.6 % (11.7-14.2); RDW Standard Deviation 49.8 fL (35.1-46.3); Red Blood Cell Count 4.09 M/mm3 (4.30-5.90); White Blood Cell Count 11.99 K/mm3 (4.00-11.30)
[2019-08-26 06:18] LABS: Alanine Aminotransfer (ALT/SGP 30 U/L (12-78); Albumin, Blood 3.5 g/dL (3.4-5.0); Albumin/Globulin Ratio 0.9 (0.8-1.8); Alk Phos 101 U/L (50-136); Anion Gap 4 mmol/L (6-16); Aspartate Aminotrans (AST/SGOT 9 U/L (12-37); Bilirubin, Total 0.3 mg/dL (0.1-1.0); Blood Urea Nitrogen 22 mg/dL (8-24); Bun/Creatinine Ratio 19.5 (12.0-20.0); CO2, Blood 30 mmol/L (21-32); Calcium, Blood 8.8 mg/dL (8.5-10.1); Chloride, Blood 105 mmol/L (98-108); Creatinine, Blood 1.13 mg/dL (0.60-1.20); Globulin, Blood 3.9 g/dL (2.2-4.0); Glomerular Filtration Rate >60 (60-); Glucose, Blood 107 mg/dL (70-99); Magnesium, Blood 2.2 mg/dL (1.6-2.4); Potassium, Blood 4.2 mmol/L (3.5-5.5); Sodium, Blood 139 mmol/L (136-145); Total Protein, Blood 7.4 g/dL (6.4-8.2)
--- NOTE | 2019-08-26 14:54 | NUR ---
DISCHARGE SUMMARY PT STABLE D/C BY PRIVATE CARD. EDUCATION PROVIDED, PT UNDERSTOOD. NO NEW MEDICATION SENT TO PHARMACY.
== END 2019-08-26 15:25 | disposition home or self-care (01) | DRG 291 ==
LOC: ER 16:30 → MEDS 16:31
PROVIDERS: Internal Medicine; Physician Assistant; ADMIT Internal Medicine
DX: I11.0 Hypertensive heart disease with heart failure (principal); I50.31 Acute diastolic (congestive) heart failure; J44.9 Chronic obstructive pulmonary disease, unspecified; E11.9 Type 2 diabetes mellitus without complications; G47.33 Obstructive sleep apnea (adult) (pediatric); R62.50 Unspecified lack of expected normal physiological development in childhood; E66.01 Morbid (severe) obesity due to excess calories; E78.5 Hyperlipidemia, unspecified; I27.81 Cor pulmonale (chronic); F17.210 Nicotine dependence, cigarettes, uncomplicated
CPT/HCPCS: 36415; 71046; 80053; 82947; 83735; 83880; 84484; 85025; 85027; 85379; 87070; 93005; 93010; 93971; 94640; 94644; 94760; 96372; 96374; 96376; 99285-25; G0378; J1650; J1940

== ENCOUNTER → 2019-10-12 | Outpatient (CLI) | payer OTHER ==
[~2019-10-12] MED LIST changes: +NEURONTIN300 MG PO; +Xylocaine5 M1 TOP
[2019-10-12 15:10] LABS: Creatinine, Urine Random 37.6 mg/dL (27.00-270.00)
[2019-10-12 15:13] LABS: Microalb/Creat Ratio UR, Rand 83.511 mg/g (0.000-30.000); Microalbumin, Random Urine 31.4 mg/L (0.000-20.000)
== END ==
LOC: LAB 13:35 → LAB SHORT 13:35
PROVIDERS: Nurse Practitioner Family
DX: E11.9 Type 2 diabetes mellitus without complications (principal)
CPT/HCPCS: 82043; 82570

== ENCOUNTER → 2020-05-10 | Outpatient (CLI) | payer OTHER | END | disposition home or self-care (01) | LOC: LAB SHORT 16:35 → LAB 16:35 | DX: L98.491 Non-pressure chronic ulcer of skin of other sites limited to breakdown of skin (principal) | CPT/HCPCS: 87070; 87075; 87205 ==

== ENCOUNTER 2020-06-13 14:00 | Inpatient (IN) | payer OTHER | END 2020-06-17 10:40 | disposition home or self-care (01) | DRG 291 | LOC: ER 14:00 → PCU 17:18 → MEDS 06-16 15:55 | PROVIDERS: ADMIT Internal Medicine | DX: I11.0 Hypertensive heart disease with heart failure (principal); J96.01 Acute respiratory failure with hypoxia; E87.1 Hypo-osmolality and hyponatremia; J44.1 Chronic obstructive pulmonary disease with (acute) exacerbation; Z68.43 Body mass index [BMI] 50.0-59.9, adult; Z20.828 Contact with and (suspected) exposure to other viral communicable diseases; I50.33 Acute on chronic diastolic (congestive) heart failure; E11.65 Type 2 diabetes mellitus with hyperglycemia; E66.01 Morbid (severe) obesity due to excess calories; G62.9 Polyneuropathy, unspecified; I48.91 Unspecified atrial fibrillation; R62.50 Unspecified lack of expected normal physiological development in childhood; Z59.0 Homelessness; Z91.19 Patient's noncompliance with other medical treatment and regimen; G47.33 Obstructive sleep apnea (adult) (pediatric); E78.5 Hyperlipidemia, unspecified; F17.210 Nicotine dependence, cigarettes, uncomplicated ==

== ENCOUNTER 2020-09-10 13:13 | Emergency (ER) | payer OTHER ==
[~2020-09-10] VITALS: Ht 180.3 cm; Wt 158.8 kg
[~2020-09-10 13:13] MED LIST changes: +ALBU2.5V5 INH; +ATHLETE'S FOO35.4 GM; +ATOR80 PO; +Acetaminophen325 M1 PO; +Aspir 8181 MG PO; +CLOTRIMAZOLE AF1524; +DYAZIDE 37.5-21 EACH PO; +FLUT.05NI; +FLUTICASONE PRO16 GM; +GABA300 PO; +IPRAT-ALBUT 0.5-3 ML INH; +METOPROLOL SUCC25 MG PO; +NAPROXEN500 MG PO; +POTCHL20ER PO; +PROAIR DIGIHAL90 MCG INH; +Prednisone10 MG PO; +SPIRIVA RESPIMAT4 G3 INH; +SYMBICORT 80-46.9 GM INH; +TIOT18 INH; +TOPROL XL25 MG PO; +TORS10 PO
[2020-09-10 13:40] LABS: BASOPHILS ABSOLUTE AUTO 0.06 K/mm3 (0.00-0.23); BASOPHILS PERCENT AUTO 1 % (0-2); EOSINOPHILS ABSOLUTE AUTO 0.13 K/mm3 (0.00-0.68); EOSINOPHILS PERCENT AUTO 1 % (0-6); Hematocrit 44.8 % (37.0-53.0); Hemoglobin 13.6 g/dL (13.5-17.5); IMMATURE GRAN ABSOLUTE AUTO 0.03 K/mm3 (0.00-0.10); IMMATURE GRAN PERCENT AUTO 0 % (0-1); LYMPHOCYTES ABSOLUTE AUTO 2.23 K/mm3 (0.84-5.20); LYMPHOCYTES PERCENT AUTO 19 % (21-46); MONOCYTES ABSOLUTE AUTO 0.74 K/mm3 (0.16-1.47); MONOCYTES PERCENT AUTO 6 % (4-13); Mean Corpuscular HGB 25.5 pg (26.0-34.0); Mean Corpuscular HGB Conc 30.4 g/dL (31.5-36.5); Mean Corpuscular Volume 84 fL (80-100); Mean Platelet Volume 9.1 fL (9.1-12.4); NEUTROPHILS ABSOLUTE AUTO 8.33 K/mm3 (1.96-9.15); NEUTROPHILS PERCENT AUTO 72 % (41-73); Platelet Count 339 K/mm3 (150-400); RDW Coefficient Variation 17.6 % (11.7-14.2); RDW Standard Deviation 53.3 fL (35.1-46.3); Red Blood Cell Count 5.34 M/mm3 (4.30-5.90); White Blood Cell Count 11.52 K/mm3 (4.00-11.30)
[2020-09-10 14:02] LABS: Alanine Aminotransfer (ALT/SGP 30 U/L (12-78); Albumin, Blood 3.7 g/dL (3.4-5.0); Albumin/Globulin Ratio 0.8 (0.8-1.8); Alk Phos 156 U/L (50-136); Anion Gap 4 mmol/L (6-16); Aspartate Aminotrans (AST/SGOT 23 U/L (12-37); Bilirubin, Total 0.5 mg/dL (0.1-1.0); Blood Urea Nitrogen 14 mg/dL (8-24); Bun/Creatinine Ratio 14.4 (12.0-20.0); CO2, Blood 31 mmol/L (21-32); Calcium, Blood 9.1 mg/dL (8.5-10.1); Chloride, Blood 100 mmol/L (98-108); Creatinine, Blood 0.98 mg/dL (0.60-1.20); Globulin, Blood 4.5 g/dL (2.2-4.0); Glomerular Filtration Rate >60 (60-); Glucose, Blood 105 mg/dL (70-99); Potassium, Blood 3.5 mmol/L (3.5-5.5); Sodium, Blood 135 mmol/L (136-145); Total Protein, Blood 8.2 g/dL (6.4-8.2)
[2020-09-10] MEDS ORDERED: Zithromax250 MG PO (15:28)
== END 2020-09-10 15:45 | disposition home or self-care (01) ==
LOC: ER 13:13
PROVIDERS: Emergency Medicine
DX: J40 Bronchitis, not specified as acute or chronic (principal); I11.0 Hypertensive heart disease with heart failure; I50.30 Unspecified diastolic (congestive) heart failure; E11.9 Type 2 diabetes mellitus without complications; E78.5 Hyperlipidemia, unspecified; J44.9 Chronic obstructive pulmonary disease, unspecified; F17.210 Nicotine dependence, cigarettes, uncomplicated; Z79.52 Long term (current) use of systemic steroids; Z79.899 Other long term (current) drug therapy; Z79.82 Long term (current) use of aspirin; Z88.8 Allergy status to other drugs, medicaments and biological substances
CPT/HCPCS: 36415; 71046; 80053; 83880; 84484; 85025; 93005; 93010; 99284-25

== ENCOUNTER 2020-12-20 01:03 | Observation (INO) | payer OTHER ==
[~2020-12-20] VITALS: Ht 180.3 cm; Wt 179.6 kg
[~2020-12-20 01:03] MED LIST changes: -ATOR80 PO; +SYMBICORT 160-4.6 GM INH; -SYMBICORT 80-46.9 GM INH; -TIOT18 INH; +Zithromax250 MG PO
[2020-12-20] MEDS ORDERED: XARELTO20 MG PO (01:27)
[2020-12-20 01:36] LABS: BASOPHILS ABSOLUTE AUTO 0.06 K/mm3 (0.00-0.23); BASOPHILS PERCENT AUTO 1 % (0-2); EOSINOPHILS ABSOLUTE AUTO 0.11 K/mm3 (0.00-0.68); EOSINOPHILS PERCENT AUTO 1 % (0-6); Hematocrit 36.9 % (37.0-53.0); Hemoglobin 11.6 g/dL (13.5-17.5); IMMATURE GRAN ABSOLUTE AUTO 0.03 K/mm3 (0.00-0.10); IMMATURE GRAN PERCENT AUTO 0 % (0-1); LYMPHOCYTES ABSOLUTE AUTO 1.78 K/mm3 (0.84-5.20); LYMPHOCYTES PERCENT AUTO 17 % (21-46); MONOCYTES ABSOLUTE AUTO 0.75 K/mm3 (0.16-1.47); MONOCYTES PERCENT AUTO 7 % (4-13); Mean Corpuscular HGB 25.9 pg (26.0-34.0); Mean Corpuscular HGB Conc 31.4 g/dL (31.5-36.5); Mean Corpuscular Volume 82 fL (80-100); Mean Platelet Volume 8.7 fL (9.1-12.4); NEUTROPHILS ABSOLUTE AUTO 7.55 K/mm3 (1.96-9.15); NEUTROPHILS PERCENT AUTO 73 % (41-73); Platelet Count 326 K/mm3 (150-400); RDW Coefficient Variation 15.6 % (11.7-14.2); RDW Standard Deviation 46.6 fL (35.1-46.3); Red Blood Cell Count 4.48 M/mm3 (4.30-5.90); White Blood Cell Count 10.28 K/mm3 (4.00-11.30)
[2020-12-20 01:51] LABS: International Normalized Ratio 1.24; Prothrombin Time Results 13.1 Sec (9.7-11.5)
[2020-12-20 01:55] LABS: Alanine Aminotransfer (ALT/SGP 22 U/L (12-78); Albumin, Blood 3.5 g/dL (3.4-5.0); Albumin/Globulin Ratio 0.8 (0.8-1.8); Alk Phos 152 U/L (50-136); Anion Gap 5 mmol/L (6-16); Aspartate Aminotrans (AST/SGOT 10 U/L (12-37); Bilirubin, Total 0.5 mg/dL (0.1-1.0); Blood Urea Nitrogen 18 mg/dL (8-24); Bun/Creatinine Ratio 16.1 (12.0-20.0); CO2, Blood 33 mmol/L (21-32); Calcium, Blood 8.3 mg/dL (8.5-10.1); Chloride, Blood 93 mmol/L (98-108); Creatinine, Blood 1.12 mg/dL (0.60-1.20); Globulin, Blood 4.2 g/dL (2.2-4.0); Glomerular Filtration Rate >60 (60-); Glucose, Blood 83 mg/dL (70-99); Potassium, Blood 3.4 mmol/L (3.5-5.5); Sodium, Blood 131 mmol/L (136-145); Total Protein, Blood 7.7 g/dL (6.4-8.2); Troponin I <0.015 ng/mL (0.000-0.040)
[2020-12-20 04:27] LABS: Magnesium, Blood 2.1 mg/dL (1.6-2.4)
--- NOTE | 2020-12-20 15:51 | NUR ---
PT ARRIVED IN THE UNIT FROM [facility] AROUND 0900A VIA STRETCHER REPROT RECEIVED FROM ALEJANDRINA SPENCER, PT IS HERE FOR ASTHMA/COPD EXACERBATION. PT IS ALERT AND ORIENTED X4 AT BASELINE. VITALS UPON ARRIVAL HRR AFIB 90-110'S INCREASES UP TO 120'S WITH EXERTION, PT DENIES CHEST PAIN/PRESSURE PT WAS ON 2L OF O2 PT IS SOB/ WITH MINIMAL EXERTION SATS REMAINED ABOVE 90% BP SYSTOLIC 130'S, AFEBRILE. PT HAS HX SLEEP APNEA PT STATED HE DOESNT USE BREATHING MACHINE AT HOME AND THAT INSURANCE WONT COVER IT, ORDERED CPAP PROTOCOL PER DR BAEZ PT WAS SNORING REALLY BAD AND DESATTING TO LOW 80-84'S, CPAP WAS OFFERED PT REFUSED TO KEEP IT IN PLACE WORE IT FOR ONLY 5MINS, PT STATED HE FREAKS OUT WITH THE MASK ON HIS FACE. PT THEN KEPT ON 2L OF O2 VIA NC. PT IS FLAT AND WITHDRAWN SOMETIMES RESISTIVE OF CARE, HAS TOBACCO CHEW IN HIS POCKET WAS INFORMED THAT PT IS NOT ALLOWED TO USE IT WHILE HE STAYS IN THE HOSPITAL PT INSISTED TO KEEP IT IN HIS POCKET, WAS REMINDED OF OUR HOSPITAL POLICY TOBACCO FREE CAMPUS. PT INDEPENDENT IN THE ROOM. NO OTHER ISSUES REPORTED AT THIS TIME. ABLE TO MAKE NEEDS KNOWN. WILL MONITOR UNTIL END OF SHIFT
--- NOTE | 2020-12-20 17:55 | NUR ---
Received call from electromechanical inspector Juliette requesting conversation confirming Pt's wishes regarding code status. Pt sitting in chair eating dinner. Pt reports mild but manageable headache. Engaged in therapeutic conversation regarding code status. Educated on life sustaining treatment including risk facotrs and implications of CPR and intubation. Pt reports wishes are CPR and Intubation. Pt states he does not want any mcc intubation. Ended visit to allow Pt to eat his meal. Palliative Care will F/U for supportive and therapeutic visists.
--- NOTE | 2020-12-20 18:41 | NUR ---
PT CONTINUES TO REFUSE CPAP WAS CAUGHT SEVERAL TIMES FALLING ASLEEP AND WAS IN A DEEP SLEEP SNORING WITH EPISODES OF APNEA SATS ON THE 80'S, PT WAS WOKEN UP COUPLE TIMES TO OFFER CPAP AND HAS REFUSED. CHARGE NURSE MADE AWARE PT GOT REALLY UPSET UPON WAKING UP WHEN ATTEMPTED TO PUT CPAP ON, CHARGE NURSE AND THIS CN DISCUSSED THE IMPORTANCE OF CPAP USE PT SEEMED UNINTERESTED AND DENIES THE NEED PT GOT REALLY FRUSTRATED AND TOLD THE CN AND THIS RN "GET THE F OFF OF ME! AND GET THIS THING OFF OF MY FACE!" PT WAS ASKED ABOUT HIS CODE STATUS IF HE WANTS TO GET RESCUSCITATED AND INTUBATED IF PT IS UNRESPONSIVE PT WAS YELLING "NO!" PT DOESNT SEEM TO UNDERSTAND THE DISCUSSION DUE TO FRUSTRATION, PALLIATIVE CARE NURSE MADE INVOLVED AND WAS ABLE TO DISCUSS THIS ISSUE AGAIN BEFORE THE END OF SHIFT, PT STARTED TO CALM DOWN REFUSED TO GET HIS O2 ON EITHER, SATS REMAINED ABOVE 90% WHEN AWAKE. WILL MONITOR
--- NOTE | 2020-12-21 00:23 | NUR ---
PATIENT IS ALERT AND ORIENTED X4. CBG 306 CALLED TO HOSPITALIST, ORDERS FOR 2 UNITS HUMALOG GIVEN. 02 SATS >90% ON RA WHILE AWAKE. PATIENT LUNGS HAVE SIGNIFICANT WHEEZING, BREATHING TREATMENTS GIVEN. PATIENT HAS APNIEC BREATHING WHILE SLEEPING AND 02 SATS DROP TO THE 70s-80s. PATIENT REFUSED CPAP SEVERAL TIMES NOW. PLACED ON 3L NC WHILE SLEEPING.
--- NOTE | 2020-12-21 01:52 | NUR ---
PATIENT STILL REFUSING CPAP AND 02 NOW WELL. SATS CONTINUE TO FLUCTUATE WHILE SLEEPING INTO THE UPPER 70s-80s.
--- NOTE | 2020-12-21 04:11 | NUR ---
SHIFT SUMMARY PATIENT ALERT AND ORIENTED X4. CONFUSED UPON WAKING DUE TO NOT WEARING CPAP AND 02 SATS DROPPING TO UPPER 70s-80s. PATIENT CURRENTLY WEARING 3L NC WHILE SLEEPING 02 SATS 80s-90s, PATIENT HAS APNIEC PERIODS. PATIENT IS NOT VERY COOPERATIVE WITH CARE. STARTS CURSING AT STAFF WHEN ANY CARE IS BEING PROVIDED BECAUSE HE'S "TIRED OF BEING BOTHERED". INDEPENDENT IN ROOM. SLEEPING IN RECLINER. VSS, OTHER THAN 02 SATS WHILE SLEEPING. CALL LIGHT IN REACH.
[2020-12-21 04:36] LABS: BASOPHILS ABSOLUTE AUTO 0.02 K/mm3 (0.00-0.23); BASOPHILS PERCENT AUTO 0 % (0-2); EOSINOPHILS PERCENT AUTO 0 % (0-6); Hemoglobin 10.9 g/dL (13.5-17.5); IMMATURE GRAN PERCENT AUTO 1 % (0-1); LYMPHOCYTES ABSOLUTE AUTO 0.73 K/mm3 (0.84-5.20); LYMPHOCYTES PERCENT AUTO 4 % (21-46); MONOCYTES ABSOLUTE AUTO 0.44 K/mm3 (0.16-1.47); MONOCYTES PERCENT AUTO 3 % (4-13); Mean Corpuscular HGB 25.6 pg (26.0-34.0); Mean Corpuscular HGB Conc 31.1 g/dL (31.5-36.5); Mean Corpuscular Volume 82 fL (80-100); NEUTROPHILS ABSOLUTE AUTO 16.38 K/mm3 (1.96-9.15); NEUTROPHILS PERCENT AUTO 93 % (41-73); Platelet Count 332 K/mm3 (150-400); RDW Coefficient Variation 15.6 % (11.7-14.2); Red Blood Cell Count 4.26 M/mm3 (4.30-5.90); White Blood Cell Count 17.67 K/mm3 (4.00-11.30)
[2020-12-21 04:59] LABS: Alanine Aminotransfer (ALT/SGP 19 U/L (12-78); Albumin, Blood 3.3 g/dL (3.4-5.0); Albumin/Globulin Ratio 0.8 (0.8-1.8); Alk Phos 136 U/L (50-136); Anion Gap 5 mmol/L (6-16); Aspartate Aminotrans (AST/SGOT 4 U/L (12-37); Bilirubin, Total 0.4 mg/dL (0.1-1.0); Blood Urea Nitrogen 26 mg/dL (8-24); Bun/Creatinine Ratio 23.6 (12.0-20.0); CO2, Blood 29 mmol/L (21-32); Calcium, Blood 8.6 mg/dL (8.5-10.1); Chloride, Blood 96 mmol/L (98-108); Globulin, Blood 4.4 g/dL (2.2-4.0); Glomerular Filtration Rate >60 (60-); Glucose, Blood 192 mg/dL (70-99); Potassium, Blood 4.4 mmol/L (3.5-5.5); Sodium, Blood 130 mmol/L (136-145); Total Protein, Blood 7.7 g/dL (6.4-8.2)
[2020-12-21] MEDS ORDERED: Prednisone20 MG PO (11:46)
--- NOTE | 2020-12-21 13:25 | NUR ---
PATIENT ALERT AND ORIENTED, INDEPENDENT IN ROOM. PATIENT PROVIDED DISCHARGE INFO REGARDING FOLLOW UP PLANS, REASONS TO RETURN TO THE HOSPITAL, AND MEDICATION INFORMATION. PATIENT VERBALIZED UNDERSTANDING, NO SIGNS OF ACUTE DISTRESS.
[2021-01-05] MEDS ORDERED: TORS10 PO (03:54)
[2021-01-08] MEDS ORDERED: AMLO5 PO (20:35)
[2021-01-11] MEDS ORDERED: GABA600 PO (10:10)
== END 2020-12-21 14:17 | disposition home or self-care (01) ==
LOC: ER 01:03 → ERHOLD 01:04 → ER 01:04 → PCU 01:05 → ERHOLD 01:05 → PCU 01:06 → ERHOLD 05:41 → PCU 09:11 → ERHOLD 09:11 → PCU 09:12
PROVIDERS: Emergency Medicine; ADMIT Internal Medicine
DX: J44.1 Chronic obstructive pulmonary disease with (acute) exacerbation (principal); I50.32 Chronic diastolic (congestive) heart failure; E11.9 Type 2 diabetes mellitus without complications; G47.33 Obstructive sleep apnea (adult) (pediatric); I48.20 Chronic atrial fibrillation, unspecified; E87.6 Hypokalemia; F17.200 Nicotine dependence, unspecified, uncomplicated; E66.01 Morbid (severe) obesity due to excess calories; Z68.42 Body mass index [BMI] 45.0-49.9, adult; Z88.8 Allergy status to other drugs, medicaments and biological substances; Z79.01 Long term (current) use of anticoagulants
CPT/HCPCS: 36415; 71046; 80053; 82947; 83735; 83880; 84484; 85025; 85610; 85730; 93005; 93010; 94640; 94644; 94660; 94762; 96365; 96366; 96375; 96376; 99285-25; A9270; G0378; J1100; J1650; J2930; J3475

== ENCOUNTER 2021-01-04 20:28 | Inpatient (IN) | payer OTHER ==
[~2021-01-04] VITALS: Ht 180.3 cm; Wt 178.8 kg
[~2021-01-04 20:28] MED LIST changes: -ASPIR 8181 M1 PO; -AZIT250 PO; -FAMO20 PO; -Flonase 0.05% N16 GM; -GLIP5 PO; -METO50ER PO; -MUPIROCIN15 GM TOP; -Monodox100 MG PO; -ONDA4ODT MM; -PROBIOTIC1 EA13 PO; -Ventolin/Prove6.7 GM INH
[2021-01-04 21:18] LABS: BASOPHILS ABSOLUTE AUTO 0.06 K/mm3 (0.00-0.23); BASOPHILS PERCENT AUTO 1 % (0-2); EOSINOPHILS ABSOLUTE AUTO 0.14 K/mm3 (0.00-0.68); EOSINOPHILS PERCENT AUTO 1 % (0-6); Hematocrit 35.8 % (37.0-53.0); Hemoglobin 11.3 g/dL (13.5-17.5); IMMATURE GRAN ABSOLUTE AUTO 0.03 K/mm3 (0.00-0.10); IMMATURE GRAN PERCENT AUTO 0 % (0-1); LYMPHOCYTES ABSOLUTE AUTO 1.94 K/mm3 (0.84-5.20); LYMPHOCYTES PERCENT AUTO 17 % (21-46); MONOCYTES ABSOLUTE AUTO 0.74 K/mm3 (0.16-1.47); MONOCYTES PERCENT AUTO 7 % (4-13); Mean Corpuscular HGB 25.3 pg (26.0-34.0); Mean Corpuscular HGB Conc 31.6 g/dL (31.5-36.5); Mean Corpuscular Volume 80 fL (80-100); Mean Platelet Volume 8.8 fL (9.1-12.4); NEUTROPHILS ABSOLUTE AUTO 8.38 K/mm3 (1.96-9.15); NEUTROPHILS PERCENT AUTO 74 % (41-73); Platelet Count 305 K/mm3 (150-400); RDW Standard Deviation 45.7 fL (35.1-46.3); Red Blood Cell Count 4.46 M/mm3 (4.30-5.90); White Blood Cell Count 11.29 K/mm3 (4.00-11.30)
[2021-01-04 21:38] LABS: Alanine Aminotransfer (ALT/SGP 22 U/L (12-78); Albumin, Blood 3.5 g/dL (3.4-5.0); Albumin/Globulin Ratio 0.9 (0.8-1.8); Alk Phos 128 U/L (50-136); Anion Gap 8 mmol/L (6-16); Aspartate Aminotrans (AST/SGOT 11 U/L (12-37); Bilirubin, Total 0.5 mg/dL (0.1-1.0); Blood Urea Nitrogen 17 mg/dL (8-24); Bun/Creatinine Ratio 15.7 (12.0-20.0); CO2, Blood 28 mmol/L (21-32); Calcium, Blood 8.4 mg/dL (8.5-10.1); Chloride, Blood 94 mmol/L (98-108); Creatinine, Blood 1.08 mg/dL (0.60-1.20); Globulin, Blood 3.7 g/dL (2.2-4.0); Glomerular Filtration Rate >60 (60-); Glucose, Blood 81 mg/dL (70-99); Potassium, Blood 3.4 mmol/L (3.5-5.5); Sodium, Blood 130 mmol/L (136-145); Total Protein, Blood 7.2 g/dL (6.4-8.2); Troponin I <0.015 ng/mL (0.000-0.040)
[2021-01-04] MEDS ORDERED: Potassium Chlo20 ME1 PO (21:41)
[2021-01-04] MEDS ORDERED: TORS10 PO (21:41)
[2021-01-04 23:20] LABS: Magnesium, Blood 1.8 mg/dL (1.6-2.4); Phosphorus, Blood 3.5 mg/dL (2.5-4.9)
[2021-01-04 23:34] LABS: PO2 Arterial 59.5 mmHg (80-100); pH Blood Arterial 7.41 (7.35-7.45)
[2021-01-05] MEDS ORDERED: GLIP5 PO (03:42)
[2021-01-05] MEDS ORDERED: FAMO20 PO (03:46)
[2021-01-05] MEDS ORDERED: METO50ER PO (03:47)
[2021-01-05] MEDS ORDERED: Monodox100 MG PO (03:50)
[2021-01-05] MEDS ORDERED: TORS10 PO ×2 (03:53→03:54)
[2021-01-05] MEDS ORDERED: Ventolin/Prove6.7 GM INH (04:00)
[2021-01-05] MEDS ORDERED: MUPIROCIN15 GM TOP (04:02)
[2021-01-05] MEDS ORDERED: AMLO5 PO (04:03)
[2021-01-05 04:36] LABS: Anion Gap 7 mmol/L (6-16); Blood Urea Nitrogen 18 mg/dL (8-24); CO2, Blood 31 mmol/L (21-32); Calcium, Blood 8.7 mg/dL (8.5-10.1); Chloride, Blood 92 mmol/L (98-108); Creatinine, Blood 1.06 mg/dL (0.60-1.20); Glomerular Filtration Rate >60 (60-); Glucose, Blood 177 mg/dL (70-99); Potassium, Blood 3.4 mmol/L (3.5-5.5); Sodium, Blood 130 mmol/L (136-145)
--- NOTE | 2021-01-05 06:32 | NUR ---
ADMIT NOTE/SHIFT SUMMARY PATIENT ADMITTED EARLIER THIS SHIFT. PATIENT ORIENTED TO THE ROOM, UNIT, AND CALL LIGHT. PATIENT WITHDRAWN AND IRRITABLE, PATIENT WILL FREQUENTLY SIGH HEAVILY ANY TIME STAFF IS ATTEMPTING TO PERFORM CARE OR ASK QUESTIONS. PATIENT HAS A RECLINER IN ROOM AND HAS BEEN MOVING BETWEEN THE BED AND THE RECLINER TO SLEEP. PATIENT REFUSING THE CPAP. PATIENT REPORTS HIS BREATHING IS FEELING BETTER THAN WHEN HE GOT HERE, HOWEVER, PATIENT CONTINUES TO SOUNDS WHEEZY. PATIENT CURRENTLY SLEEPING IN BED. WILL CONTINUE CURRENT PLAN OF CARE AND REPORT TO ONCOMING RN.
[2021-01-05] MEDS ORDERED: ASPIR 8181 M1 PO (12:16)
[2021-01-05] MEDS ORDERED: AZIT250 PO (12:16)
[2021-01-05] MEDS ORDERED: Flonase 0.05% N16 GM (12:17)
[2021-01-05] MEDS ORDERED: Prednisone10 MG PO (12:19)
[2021-01-05] MEDS ORDERED: ONDA4ODT MM (12:21)
[2021-01-05] MEDS ORDERED: PROBIOTIC1 EA13 PO (12:22)
--- NOTE | 2021-01-05 14:53 | NUR ---
DISCHARGE INSTRUCTIONS REVIEWED WITH PT WITH CLEAR UNDERSTANDING. RX SENT TO [facility]. ASSISTED FROM UNIT IN WHEELCHAIR BY PLUMBER CUB WITH BELONGINGS IN NO ACUTE DISTRESS.
[2021-01-08] MEDS ORDERED: AMLO5 PO (20:35)
== END 2021-01-05 14:21 | disposition home or self-care (01) | DRG 291 ==
LOC: ER 20:28 → PCU 01-05 02:12 → ER 01-05 03:02 → PCU 01-05 14:21
PROVIDERS: Emergency Medicine; Physician Assistant; ADMIT Internal Medicine
DX: I11.0 Hypertensive heart disease with heart failure (principal); J96.01 Acute respiratory failure with hypoxia; J44.1 Chronic obstructive pulmonary disease with (acute) exacerbation; Z68.43 Body mass index [BMI] 50.0-59.9, adult; E66.2 Morbid (severe) obesity with alveolar hypoventilation; I50.33 Acute on chronic diastolic (congestive) heart failure; E87.6 Hypokalemia; E11.9 Type 2 diabetes mellitus without complications; I48.91 Unspecified atrial fibrillation; I50.9 Heart failure, unspecified; Z60.2 Problems related to living alone; F17.210 Nicotine dependence, cigarettes, uncomplicated; Z88.8 Allergy status to other drugs, medicaments and biological substances; Z79.82 Long term (current) use of aspirin; Z79.01 Long term (current) use of anticoagulants; Z79.899 Other long term (current) drug therapy; Z59.0 Homelessness; Z87.01 Personal history of pneumonia (recurrent)
CPT/HCPCS: 36415; 36600; 71045; 80048; 80053; 82803; 83735; 83880; 84100; 84145; 84484; 85025; 93005; 93010; 94640; 94644; 94645; 94760; 94761; 96374; 99285-25; A9270; A9270-GY; J1940; J2930; J7512

== ENCOUNTER → 2021-01-04 | Outpatient (CLI) | payer OTHER ==
[~2021-01-04] MED LIST changes: +ASPIR 8181 M1 PO; +AZIT250 PO; +FAMO20 PO; +Flonase 0.05% N16 GM; +GLIP5 PO; +METO50ER PO; +MUPIROCIN15 GM TOP; +Monodox100 MG PO; +ONDA4ODT MM; +PROBIOTIC1 EA13 PO; -SYMBICORT 160-4.6 GM INH; +SYMBICORT 80-46.9 GM INH; +TIOT18 INH; +Ventolin/Prove6.7 GM INH; +XARELTO20 MG PO
== END | disposition home or self-care (01) ==
LOC: LAB SHORT 10:00
DX: L97.911 Non-pressure chronic ulcer of unspecified part of right lower leg limited to breakdown of skin (principal)
CPT/HCPCS: 87070; 87077; 87147; 87186; 87205

== ENCOUNTER 2021-01-29 12:01 | Observation (INO) | payer OTHER ==
[~2021-01-29] VITALS: Ht 180.3 cm; Wt 185.9 kg
[~2021-01-29 12:01] MED LIST changes: +ASPIR 8181 M1 PO; +AZIT250 PO; +FAMO20 PO; +Flonase 0.05% N16 GM; +GABA600 PO; +GLIP5 PO; +METO50ER PO; +MUPIROCIN15 GM TOP; +Monodox100 MG PO; +ONDA4ODT MM; +PROBIOTIC1 EA13 PO; +SYMBICORT 160-4.6 GM INH; -SYMBICORT 80-46.9 GM INH; -TIOT18 INH; +Ventolin/Prove6.7 GM INH
[2021-01-29] MEDS ORDERED: FAMO20 PO (12:11)
[2021-01-29 12:38] LABS: BASOPHILS ABSOLUTE AUTO 0.03 K/mm3 (0.00-0.23); BASOPHILS PERCENT AUTO 0 % (0-2); EOSINOPHILS ABSOLUTE AUTO 0.08 K/mm3 (0.00-0.68); EOSINOPHILS PERCENT AUTO 1 % (0-6); Hematocrit 37.7 % (37.0-53.0); Hemoglobin 11.8 g/dL (13.5-17.5); IMMATURE GRAN ABSOLUTE AUTO 0.02 K/mm3 (0.00-0.10); IMMATURE GRAN PERCENT AUTO 0 % (0-1); LYMPHOCYTES ABSOLUTE AUTO 1.33 K/mm3 (0.84-5.20); LYMPHOCYTES PERCENT AUTO 17 % (21-46); MONOCYTES ABSOLUTE AUTO 0.68 K/mm3 (0.16-1.47); MONOCYTES PERCENT AUTO 9 % (4-13); Mean Corpuscular HGB 25.7 pg (26.0-34.0); Mean Corpuscular HGB Conc 31.3 g/dL (31.5-36.5); Mean Corpuscular Volume 82 fL (80-100); Mean Platelet Volume 9.4 fL (9.1-12.4); NEUTROPHILS ABSOLUTE AUTO 5.58 K/mm3 (1.96-9.15); NEUTROPHILS PERCENT AUTO 72 % (41-73); Platelet Count 321 K/mm3 (150-400); RDW Coefficient Variation 17.4 % (11.7-14.2); RDW Standard Deviation 50.9 fL (35.1-46.3); White Blood Cell Count 7.72 K/mm3 (4.00-11.30)
[2021-01-29 12:45] LABS: pH Blood Arterial 7.39 (7.35-7.45)
[2021-01-29 12:46] LABS: PO2 Arterial 43.6 mmHg (80-100)
[2021-01-29 13:02] LABS: Alanine Aminotransfer (ALT/SGP 23 U/L (12-78); Albumin, Blood 3.6 g/dL (3.4-5.0); Albumin/Globulin Ratio 0.9 (0.8-1.8); Alk Phos 159 U/L (50-136); Anion Gap 4 mmol/L (6-16); Aspartate Aminotrans (AST/SGOT 26 U/L (12-37); Bilirubin, Total 0.8 mg/dL (0.1-1.0); Blood Urea Nitrogen 12 mg/dL (8-24); CO2, Blood 32 mmol/L (21-32); Calcium, Blood 8.6 mg/dL (8.5-10.1); Chloride, Blood 94 mmol/L (98-108); Glomerular Filtration Rate >60 (60-); Glucose, Blood 97 mg/dL (70-99); Potassium, Blood 4.2 mmol/L (3.5-5.5); Sodium, Blood 130 mmol/L (136-145); Total Protein, Blood 7.6 g/dL (6.4-8.2)
[2021-01-29] MEDS ORDERED: IBU800 M1 PO (13:56)
[2021-01-29] MEDS ORDERED: TORS10 PO (14:01)
[2021-01-29 18:05] LABS: U Amphetamine Screen Not Detected; U Barbituate Screen Not Detected; U Benzodiazapine Screen Not Detected; U Buprenorphine Screen Not Detected; U Cannabinoids Screen Not Detected; U Cocaine Screen Not Detected; U Methadone Screen Not Detected; U Methamphetamine Screen Not Detected; U Opiates Screen Not Detected; U Oxycodone Screen Not Detected; U Phencyclidine Screen Not Detected; U Propoxyphene Screen Not Detected
[2021-01-29] MEDS ORDERED: ACET500 (20:08)
[2021-01-29] MEDS ORDERED: TRIA50 (20:39)
[2021-01-29] MEDS ORDERED: HYDCHL25 (20:41)
--- NOTE | 2021-01-30 03:42 | NUR ---
PT with morbid obesity diabetes recent positive wound culture for MRSA admitted with hypoxia & COPD excaberation. He has severe OAS refused CPAP BIPAP repeatedly. PT desats to low 80s while sleeping oxygen 2 l NC appled to keep sats greater than 88%. PT with audible wheezing. PT has multiple scattered wounds rt LE draining wound. Wound care orders obtained reported refusal of CPAP in PT who has critical pco2 in ER. Wound culture order photo doc wounds. PT sleeping in bedside chair unable to lay flat. On IV steroids Q 6 hrs. Homeless, PT has large backpack in room & is noncompliant with giving Nurse his Home meds which he has in his backpack.He vebalizes he is not to take any home meds while in to hospital. On tele monitor with AFIB rate 106. Bioxx. Continue to assess. He is a smoker reportedly switching to chewing tobacco recently due to SOB. HAs SW & plallative care consult.
[2021-01-30 04:53] LABS: Hemoglobin 11.4 g/dL (13.5-17.5); Mean Corpuscular HGB 25.6 pg (26.0-34.0); Mean Corpuscular HGB Conc 30.8 g/dL (31.5-36.5); Mean Corpuscular Volume 83 fL (80-100); Mean Platelet Volume 9.5 fL (9.1-12.4); Platelet Count 304 K/mm3 (150-400); RDW Coefficient Variation 17.2 % (11.7-14.2); RDW Standard Deviation 50.7 fL (35.1-46.3); Red Blood Cell Count 4.46 M/mm3 (4.30-5.90); White Blood Cell Count 8.28 K/mm3 (4.00-11.30)
[2021-01-30 05:24] LABS: Alanine Aminotransfer (ALT/SGP 22 U/L (12-78); Albumin, Blood 3.5 g/dL (3.4-5.0); Albumin/Globulin Ratio 0.9 (0.8-1.8); Alk Phos 150 U/L (50-136); Anion Gap 6 mmol/L (6-16); Aspartate Aminotrans (AST/SGOT 5 U/L (12-37); Bilirubin, Total 0.7 mg/dL (0.1-1.0); Blood Urea Nitrogen 17 mg/dL (8-24); Bun/Creatinine Ratio 13.6 (12.0-20.0); CO2, Blood 30 mmol/L (21-32); Calcium, Blood 8.9 mg/dL (8.5-10.1); Chloride, Blood 95 mmol/L (98-108); Creatinine, Blood 1.25 mg/dL (0.60-1.20); Globulin, Blood 3.9 g/dL (2.2-4.0); Glomerular Filtration Rate >60 (60-); Glucose, Blood 157 mg/dL (70-99); Potassium, Blood 4.2 mmol/L (3.5-5.5); Sodium, Blood 131 mmol/L (136-145); Total Protein, Blood 7.4 g/dL (6.4-8.2)
--- NOTE | 2021-01-30 13:56 | NUR ---
MAY REMOVE TELE FOR SHOWER RECEIVED V.O. FROM DR. CAMERON, PT MAY REMOVE TELE FOR SHOWER.
--- NOTE | 2021-01-30 15:51 | NUR ---
Spiritual care visit conducted. Patient talks about life out on the streets. He states that he has enough money coming for 4 days a month to stay in a hotel, he has food stamps and he has some buddhism support. He admits to having a temper and says that he has not had alcohol since last March. He talks about the challenges he has taking good care of himself medically or for cleanliness. I normalize his struggle to survive and provide therapeutic listening and prayer. Patient responds well and shows signs of increased hope. I will continue to remain available.
--- NOTE | 2021-01-30 16:51 | NUR ---
Shift Summary A/Ox3, pleasant and cooperative. Up independently in room, had shower today. Patient reports feeling claustrophobic and often takes off nasal cannula. Titrated down from 2L to 1L, sats ranging between 89-95% at rest. Desats with activity to low-mid 80's but fully recovers upon resting. Dyspneic with exertion. Tele: Afib 92. Unable to obtain wound cx d/t already received abx in ER prior to arrival to unit. Biox on. Up in chair most of the day. Agreeable to work with PT/OT, tolerated well. Patient drinking personal soda pop (Root Beer and Dr. Mello) despite being diabetic. Education given, diet pepsi offered. WCTM.
--- NOTE | 2021-01-31 07:28 | NUR ---
40 year old Male with mild Developmental delay & morbid obesity COPD current smoker & chews tobacco continues on contact isolation for draining rt le wound. recent MRSA positive culture from RT Le wound nonhealing due to 4 plus deep brawny edema. PT will not use CPAP or BIOXX or oxygen consistantly. He is noncompliant with strict I & O. Homeless he has SW referral for safe DC plan. Upper lung woods with coarse stridorous wheeze improved over previous day on IV steroids. PT has multiple skin issues kidd to rt hand that he picked the blisters open & removed skin. He says he recieved kidd from 5 minutes in the sun. On tele monitor Afib rate 90s.
--- NOTE | 2021-01-31 16:35 | NUR ---
Shift Summary Patient states not comfortable with going home today and also needs ample time to arrange transport. Discussed with Dr. Lopze, plan to d/c tomorrow. Denies pain, nausea, vomiting, diarrhea. Up to bathroom independently. L/S much improved since yesterday. Remains dyspneic with exertion. On RA, sats >90% even with activity. Tele: Afib 76.
--- NOTE | 2021-02-01 04:05 | NUR ---
PT continues with coarse striderous wheeze upper airways, PT says is baseline for years. He refuses to wear oxygen cpap or bioxx. Obese he is unable to lay in bed. He has rt le draining wound with large amt of serous drainage. PT has plans for DC today has income from disability to secure housing. Has wound care supplies with some supplies sending with PT large width coban, kerlex, adb, karacleanse. PT verbalizes he is able to do self dressing changes.
[2021-02-01 05:41] LABS: Anion Gap 4 mmol/L (6-16); Blood Urea Nitrogen 28 mg/dL (8-24); Bun/Creatinine Ratio 23.7 (12.0-20.0); CO2, Blood 32 mmol/L (21-32); Calcium, Blood 9.1 mg/dL (8.5-10.1); Chloride, Blood 98 mmol/L (98-108); Creatinine, Blood 1.18 mg/dL (0.60-1.20); Glomerular Filtration Rate >60 (60-); Glucose, Blood 140 mg/dL (70-99); Potassium, Blood 3.8 mmol/L (3.5-5.5); Sodium, Blood 134 mmol/L (136-145)
[2021-02-01] MEDS ORDERED: Prednisone10 MG PO (10:07)
--- NOTE | 2021-02-01 12:18 | NUR ---
Discharge Summary Patient discharging back to prior living situation. Reviewed discharge paperwork with patient, no questions at this time. Copy given. IV removed, WNL. Personal belongings sent with patient. Made a stop at Security to quill picking machine operator additional belongings prior to heading out the door. Escorted by this RN via w/c.
== END 2021-02-01 12:16 | disposition home or self-care (01) ==
LOC: ER 12:01 → MEDS 12:02
PROVIDERS: Emergency Medicine; Internal Medicine; Nurse Practitioner Acute Care; ADMIT Internal Medicine
DX: J44.1 Chronic obstructive pulmonary disease with (acute) exacerbation (principal); J96.92 Respiratory failure, unspecified with hypercapnia; G92 Toxic encephalopathy; M79.89 Other specified soft tissue disorders; N17.9 Acute kidney failure, unspecified; I11.0 Hypertensive heart disease with heart failure; I50.33 Acute on chronic diastolic (congestive) heart failure; E11.42 Type 2 diabetes mellitus with diabetic polyneuropathy; I48.91 Unspecified atrial fibrillation; R62.50 Unspecified lack of expected normal physiological development in childhood; E78.5 Hyperlipidemia, unspecified; K21.9 Gastro-esophageal reflux disease without esophagitis; Z66 Do not resuscitate; F17.220 Nicotine dependence, chewing tobacco, uncomplicated; E66.2 Morbid (severe) obesity with alveolar hypoventilation; Z91.19 Patient's noncompliance with other medical treatment and regimen; Z68.43 Body mass index [BMI] 50.0-59.9, adult; Z59.0 Homelessness; Z79.84 Long term (current) use of oral hypoglycemic drugs; Z88.8 Allergy status to other drugs, medicaments and biological substances
CPT/HCPCS: 36415; 36600; 71045; 80048; 80053; 82803; 82947; 83735; 83880; 85025; 85027; 87070; 87075; 87077; 87186; 87205; 93005; 93010; 94640; 94644; 94660; 94760; 94762; 96374; 96375; 96376; 97110; 97116; 97161; 97166; 97530; 97535; 99285-25; A9270; G0378; J0456; J1940; J2310; J2930; J7030; J7050; J7512

== ENCOUNTER 2021-02-01 21:04 | Emergency (ER) | payer OTHER ==
[~2021-02-01] VITALS: Ht 180.3 cm; Wt 187.8 kg
[~2021-02-01 21:04] MED LIST changes: +ACET500; +HYDCHL25; +IBU800 M1 PO; +TRIA50
[2021-02-01 22:14] LABS: BASOPHILS ABSOLUTE AUTO 0.02 K/mm3 (0.00-0.23); BASOPHILS PERCENT AUTO 0 % (0-2); EOSINOPHILS PERCENT AUTO 0 % (0-6); Hematocrit 35.6 % (37.0-53.0); Hemoglobin 11.1 g/dL (13.5-17.5); IMMATURE GRAN ABSOLUTE AUTO 0.09 K/mm3 (0.00-0.10); IMMATURE GRAN PERCENT AUTO 1 % (0-1); LYMPHOCYTES PERCENT AUTO 13 % (21-46); MONOCYTES ABSOLUTE AUTO 1.16 K/mm3 (0.16-1.47); MONOCYTES PERCENT AUTO 7 % (4-13); Mean Corpuscular HGB 25.7 pg (26.0-34.0); Mean Corpuscular HGB Conc 31.2 g/dL (31.5-36.5); Mean Corpuscular Volume 82 fL (80-100); Mean Platelet Volume 8.9 fL (9.1-12.4); NEUTROPHILS ABSOLUTE AUTO 12.51 K/mm3 (1.96-9.15); NEUTROPHILS PERCENT AUTO 79 % (41-73); Platelet Count 336 K/mm3 (150-400); RDW Coefficient Variation 17.6 % (11.7-14.2); RDW Standard Deviation 51.8 fL (35.1-46.3); Red Blood Cell Count 4.32 M/mm3 (4.30-5.90); White Blood Cell Count 15.78 K/mm3 (4.00-11.30)
[2021-02-01 22:31] LABS: Alanine Aminotransfer (ALT/SGP 38 U/L (12-78); Albumin, Blood 3.4 g/dL (3.4-5.0); Albumin/Globulin Ratio 0.9 (0.8-1.8); Alk Phos 113 U/L (50-136); Anion Gap 6 mmol/L (6-16); Aspartate Aminotrans (AST/SGOT 17 U/L (12-37); Bilirubin, Total 0.3 mg/dL (0.1-1.0); Blood Urea Nitrogen 28 mg/dL (8-24); Bun/Creatinine Ratio 21.7 (12.0-20.0); CO2, Blood 31 mmol/L (21-32); Calcium, Blood 8.4 mg/dL (8.5-10.1); Chloride, Blood 99 mmol/L (98-108); Creatinine, Blood 1.29 mg/dL (0.60-1.20); Globulin, Blood 3.6 g/dL (2.2-4.0); Glomerular Filtration Rate >60 (60-); Glucose, Blood 131 mg/dL (70-99); Potassium, Blood 3.2 mmol/L (3.5-5.5); Sodium, Blood 136 mmol/L (136-145); Troponin I <0.015 ng/mL (0.000-0.040)
== END 2021-02-02 01:45 | disposition home or self-care (01) ==
LOC: ER 21:04
PROVIDERS: Physician Assistant
DX: J44.9 Chronic obstructive pulmonary disease, unspecified (principal); G47.33 Obstructive sleep apnea (adult) (pediatric); E11.9 Type 2 diabetes mellitus without complications; E66.9 Obesity, unspecified; Z88.8 Allergy status to other drugs, medicaments and biological substances; Z79.899 Other long term (current) drug therapy
CPT/HCPCS: 71046; 80053; 83880; 84484; 85025; 93005; 93010; 94644; 99285-25; A9270; J7512

== ENCOUNTER 2021-05-24 20:42 | Inpatient (IN) | payer OTHER ==
[~2021-05-24] VITALS: Ht 180.3 cm; Wt 180.5 kg
[~2021-05-24 20:42] MED LIST changes: -HYDCHL25; +HYDCHL25 PO
[2021-05-24 21:42] LABS: BASOPHILS ABSOLUTE AUTO 0.05 K/mm3 (0.00-0.23); BASOPHILS PERCENT AUTO 1 % (0-2); EOSINOPHILS ABSOLUTE AUTO 0.08 K/mm3 (0.00-0.68); EOSINOPHILS PERCENT AUTO 1 % (0-6); Hematocrit 32.8 % (37.0-53.0); Hemoglobin 9.6 g/dL (13.5-17.5); IMMATURE GRAN ABSOLUTE AUTO 0.03 K/mm3 (0.00-0.10); IMMATURE GRAN PERCENT AUTO 0 % (0-1); LYMPHOCYTES ABSOLUTE AUTO 1.25 K/mm3 (0.84-5.20); LYMPHOCYTES PERCENT AUTO 14 % (21-46); MONOCYTES ABSOLUTE AUTO 0.57 K/mm3 (0.16-1.47); MONOCYTES PERCENT AUTO 6 % (4-13); Mean Corpuscular HGB 22.5 pg (26.0-34.0); Mean Corpuscular HGB Conc 29.3 g/dL (31.5-36.5); Mean Corpuscular Volume 77 fL (80-100); Mean Platelet Volume 8.9 fL (9.1-12.4); NEUTROPHILS ABSOLUTE AUTO 7.15 K/mm3 (1.96-9.15); NEUTROPHILS PERCENT AUTO 78 % (41-73); NRBC ABSOLUTE 0.02 K/mm3 (0.00-0.02); NRBC Auto 0.2 /100 WBC (0.0-0.2); Platelet Count 338 K/mm3 (150-400); RDW Coefficient Variation 18.5 % (11.7-14.2); RDW Standard Deviation 49.3 fL (35.1-46.3); Red Blood Cell Count 4.27 M/mm3 (4.30-5.90); White Blood Cell Count 9.13 K/mm3 (4.00-11.30)
[2021-05-24 21:58] LABS: Troponin I <0.015 ng/mL (0.000-0.040)
[2021-05-24 22:02] LABS: Alanine Aminotransfer (ALT/SGP 21 U/L (12-78); Albumin, Blood 3.8 g/dL (3.4-5.0); Albumin/Globulin Ratio 0.9 (0.8-1.8); Alk Phos 143 U/L (50-136); Anion Gap 7 mmol/L (6-16); Aspartate Aminotrans (AST/SGOT 9 U/L (12-37); Bilirubin, Total 0.4 mg/dL (0.1-1.0); Blood Urea Nitrogen 84 mg/dL (8-24); CO2, Blood 22 mmol/L (21-32); Calcium, Blood 8.3 mg/dL (8.5-10.1); Chloride, Blood 97 mmol/L (98-108); Globulin, Blood 4.4 g/dL (2.2-4.0); Glomerular Filtration Rate 19 (60-); Glucose, Blood 56 mg/dL (70-99); Potassium, Blood 6.4 mmol/L (3.5-5.5); Sodium, Blood 126 mmol/L (136-145); Total Protein, Blood 8.2 g/dL (6.4-8.2)
[2021-05-25 00:22] LABS: Bilirubin, Urine Neg (Neg); Blood, Urine Neg (Neg); Glucose Qualitative, Urine Neg (Neg); Ketones, Urine Neg (Neg); Leukocyte Esterase, Urine Neg (Neg); Nitrite, Urine Neg (Neg); Protein, Urine Neg (Neg); Source, Urine Catheter; Urobilinogen, Urine NORM (Normal)
[2021-05-25 00:25] LABS: Appearance, Urine Clear (Clear); Color, Urine Pale Yellow (P-Yellow)
--- NOTE | 2021-05-25 00:45 | NUR ---
RECEIVED REPORT FROM TERRA MARTINEZ RN. PT TRANSPORTED TO MEDICAL FLOOR VIA GURNEY, SLIDE TRANSFERRED TO BED. VS TAKEN, WNL; O2 SATS STABLE ON 2L/NC. PT LETHARGIC, AROUSABLE TO VERBAL AND TACTILE STIMULI. SETTLED INTO ROOM. CALL LIGHT AND POSSESSIONS IN REACH.
--- NOTE | 2021-05-25 02:10 | NUR ---
SPOKE TO DR. GOMES REGARDING PT'S RESPIRATORY STATUS AND INCREASED WOB. ORDERS RECEIVED.
--- NOTE | 2021-05-25 02:45 | NUR ---
RT AT THE BEDSIDE ADMINISTERING BREATHING TX TO PT. RECOMMENDATION GIVEN TO OBTAIN ARTERIAL BLOOD GAS. NOTIFIED DR. GOMES OF REQUEST, ORDERS RECEIVED. AWAITING RESULTS.
[2021-05-25 02:56] LABS: PCO2 Arterial 64.1 mmHg (35-45)
[2021-05-25 02:57] LABS: PO2 Arterial 40.9 mmHg (80-100); pH Blood Arterial 7.19 (7.35-7.45)
--- NOTE | 2021-05-25 03:16 | NUR ---
DR. GOMES NOTIFIED OF PT'S CRITICAL ABG RESULTS. ORDERS RECEIVED, RT PLACING PT ON BIPAP.
[2021-05-25 05:40] LABS: Bun/Creatinine Ratio 25.2 (12.0-20.0); Calcium, Blood 8.3 mg/dL (8.5-10.1); Creatinine, Blood 3.14 mg/dL (0.60-1.20); Potassium, Blood 5.4 mmol/L (3.5-5.5)
--- NOTE | 2021-05-25 05:58 | NUR ---
THIS RN IN PT ROOM, PT MINIMALLY RESPONSIVE TO VERBAL STIMULI. RAPID RESPONSE CALLED.
[2021-05-25 06:05] LABS: PCO2 Arterial 67.2 mmHg (35-45); PO2 Arterial 191 mmHg (80-100)
[2021-05-25 06:06] LABS: pH Blood Arterial 7.19 (7.35-7.45)
--- NOTE | 2021-05-25 06:30 | NUR ---
UPDATED DR. GOMES REGARDING PT'S CBG OF 104 AND PT CONTINUED OBTUNDED STATE. PROVIDER TO ENTER ADDITIONAL ORDERS INTO EMR.
--- NOTE | 2021-05-25 06:45 | NUR ---
SHIFT SUMMARY PT RESTING, IN NAD. REMAINS OBTUNDED, AROUSABLE TO PAINFUL STIMULI. 100% FIO2 ON BIPAP. VS REVIEWED,WNL. CBG STABLE. 1 AMP OF SODIUM BICARB IV PUSH GIVEN PER ORDERS. RESPS E/U. PULSES EQUALLY STRONG BILATERALLY. APPEARS COMFORTABLE. DANG CATHETER PATENT AND DRAINING ADEQUATE AMOUNTS CLEAR YELLOW URINE TO GRAVITY. NO ACUTE NEEDS ASSESSED AT THIS TIME. REPORT GIVEN TO JOHANNA DUNCAN.
[2021-05-25 08:58] LABS: PCO2 Arterial 58.9 mmHg (35-45); PO2 Arterial 117 mmHg (80-100)
[2021-05-25 08:59] LABS: pH Blood Arterial 7.24 (7.35-7.45)
--- NOTE | 2021-05-25 12:25 | NUR ---
TRANSFER TO PCU PATIENT CONFUSED AND AGITATED, PULLING AT BIPAP MASK, UNABLE TO REDIRECT. BILATERAL SOFT WRISTS APPLIED. PATIENT TRANSFERED TO PCU. REPORT GIVEN TO GEOVANNY SPENCER.
--- NOTE | 2021-05-25 12:37 | NUR ---
PT ARRIVED TO PCU, ON BIPAP, NOW 30/08, FIO2 40%, PT BREATHING 26
[2021-05-25 12:50] LABS: BASOPHILS ABSOLUTE AUTO 0.01 K/mm3 (0.00-0.23); BASOPHILS PERCENT AUTO 0 % (0-2); EOSINOPHILS PERCENT AUTO 0 % (0-6); Hematocrit 31.3 % (37.0-53.0); Hemoglobin 9.4 g/dL (13.5-17.5); IMMATURE GRAN ABSOLUTE AUTO 0.05 K/mm3 (0.00-0.10); IMMATURE GRAN PERCENT AUTO 1 % (0-1); LYMPHOCYTES ABSOLUTE AUTO 0.34 K/mm3 (0.84-5.20); LYMPHOCYTES PERCENT AUTO 5 % (21-46); MONOCYTES ABSOLUTE AUTO 0.06 K/mm3 (0.16-1.47); MONOCYTES PERCENT AUTO 1 % (4-13); Mean Corpuscular Volume 77 fL (80-100); Mean Platelet Volume 8.8 fL (9.1-12.4); NEUTROPHILS ABSOLUTE AUTO 6.85 K/mm3 (1.96-9.15); NEUTROPHILS PERCENT AUTO 94 % (41-73); NRBC ABSOLUTE 0.02 K/mm3 (0.00-0.02); NRBC Auto 0.3 /100 WBC (0.0-0.2); Platelet Count 314 K/mm3 (150-400); RDW Coefficient Variation 18.3 % (11.7-14.2); RDW Standard Deviation 49.3 fL (35.1-46.3); Red Blood Cell Count 4.09 M/mm3 (4.30-5.90); White Blood Cell Count 7.31 K/mm3 (4.00-11.30)
[2021-05-25 15:06] LABS: Base Excess Venous 0.4 mmol/L; Bicarbonate Venous 24.7 mmol/L (24.0-30.0); PCO2 Venous 41.9 mmHg (38-42); pH Blood Venous 7.39 (7.34-7.37)
--- NOTE | 2021-05-25 18:36 | NUR ---
SUMMARY PT SITTING UP IN BED, ON 2L NC, MORE AWAKE, STILL AGITATED AND CONFUSED, PT PULLS OFF TELE WIRES AND OXYGEN IF HE CAN REACH THEM, DOES NOT CONSISTENTLY FOLLOW COMMANDS, HAS AN EXPIRATORY WHEEZE YOU CAN HEAR WITHOUT A STETHOSCOPE, PT SWEARING AND YELLING FREQUENTLY, ORDERED IM ZYPREXA FOR AGITATION, PT ABLE TO TAKE SMALL SIPS OF WATER WITH ASSIST, VSS, WILL CONT TO MONITOR
[2021-05-25 20:09] LABS: Adenovirus Not Detected (NOT DETECT); Bordetella pertussis Not Detected (NOT DETECT); Chlamydophila pneumoniae Not Detected (NOT DETECT); Coronavirus 229E Not Detected (NOT DETECT); Coronavirus HKU1 Not Detected (NOT DETECT); Coronavirus NL63 Not Detected (NOT DETECT); Coronavirus OC43 Not Detected (NOT DETECT); Human Metapneumovirus Not Detected (NOT DETECT); Human Rhinovirus/Enterovirus Not Detected (NOT DETECT); Influenza A/2009-H1 Not Detected (NOT DETECT); Influenza A/H1 Not Detected (NOT DETECT); Influenza A/H3 Not Detected (NOT DETECT); Influenza B Not Detected (NOT DETECT); Mycoplasma pneumoniae Not Detected (NOT DETECT); Parainfluenza Virus 1 Not Detected (NOT DETECT); Parainfluenza Virus 2 Not Detected (NOT DETECT); Parainfluenza Virus 3 Not Detected (NOT DETECT); Parainfluenza Virus 4 Not Detected (NOT DETECT); Respiratory Syncytial Virus Not Detected (NOT DETECT); SARS-Cov-2 (COVID-19), BioFire Not Detected (NOT DETECT)
[2021-05-26 04:10] LABS: Base Excess Venous 2.9 mmol/L; Bicarbonate Venous 26.5 mmol/L (24.0-30.0); PCO2 Venous 47.3 mmHg (38-42); PO2 Venous 86.1 mmHg (38-42); pH Blood Venous 7.38 (7.34-7.37)
[2021-05-26 04:48] LABS: Hematocrit 28.5 % (37.0-53.0); Hemoglobin 8.6 g/dL (13.5-17.5); Mean Corpuscular HGB 22.9 pg (26.0-34.0); Mean Corpuscular HGB Conc 30.2 g/dL (31.5-36.5); Mean Corpuscular Volume 76 fL (80-100); Mean Platelet Volume 9.2 fL (9.1-12.4); NRBC ABSOLUTE 0.03 K/mm3 (0.00-0.02); NRBC Auto 0.4 /100 WBC (0.0-0.2); Platelet Count 305 K/mm3 (150-400); RDW Coefficient Variation 18.4 % (11.7-14.2); RDW Standard Deviation 48.7 fL (35.1-46.3); Red Blood Cell Count 3.76 M/mm3 (4.30-5.90); White Blood Cell Count 8.04 K/mm3 (4.00-11.30)
[2021-05-26 05:07] LABS: Albumin, Blood 3.4 g/dL (3.4-5.0); Albumin/Globulin Ratio 0.8 (0.8-1.8); Bilirubin, Total 0.5 mg/dL (0.1-1.0); Bun/Creatinine Ratio 34.8 (12.0-20.0); Calcium, Blood 8.4 mg/dL (8.5-10.1); Creatinine, Blood 2.27 mg/dL (0.60-1.20); Globulin, Blood 4.1 g/dL (2.2-4.0); Potassium, Blood 4.5 mmol/L (3.5-5.5); Total Protein, Blood 7.5 g/dL (6.4-8.2)
--- NOTE | 2021-05-26 05:53 | NUR ---
ASSUMED CARE OF PT AT 1900. PT RESTLESS AND AGITATED. 3L NC SATTING AROUND 96%, WAS SWITCHED TO CPAP 16/12 40% FIO2 DURING THE NIGHT WITH LITTLE COMPLAINT POST ZYPREXA PRN. WHEEZING/DIM/COARSE. WEEPING EDEMA IN BLE WITH +1 PEDAL PULSES. MANY OPEN SORES ON THE BLE. CHRONIC AFIB AVG 120 PER TELEMETRY. ABDOMEN IS FIRM AND DISTENDED. DANG DRAINING DARK PINK URINE. PATIENT T/O NIGHT WAS AGITATED, TRYING TO PULL AT ANY LINES HE COULD, AND SWUNG HIS FEET OVER TO THE SIDE (DESPITE BILATERAL WRISTS IN SWR) TO TRY TO GET UP. 4 POINT RESTRAINT ORDERED. MOVED PATIENT FROM ROOM 12 TO 14 WHERE THERE'S AN OVERHEAD LIFT. PATIENT REQUIRED MULTIPLE DOSES OF PRN ZYPREXA DURING THE NIGHT TO HELP THE AGITATION, WITH EACH EPISODE HE WOULD DESAT TO MID 80'S. PG IN L ARM IS POSITIONAL. WILL REPORT TO ONCOMING NURSE.
--- NOTE | 2021-05-26 08:00 | NUR ---
pt is aggitated, yelling out, wanting to eat and many other things. restraints on arms were removed, he is eating without diff, lungs have exp wheezing, on 2.5 liters, turned up to 3 as sats are 89%, occ nonproductive cough, hrirr, tele in place running afib per monitor, see strip, wheeping edema noted to b/l nitza, ppp+1, iv is power glide to feliciano, site is clear and patent, johnson cath draining dk urine, skin has wounds to b/l miranda goddard perla, call light in reach, but pt will yell rather than use it.
--- NOTE | 2021-05-26 15:24 | NUR ---
pt sleeping in the bed with apnic episode, and head tipped back, asked him if he would put the mask on, he yelled and became beligerant, put a pillow behind his head so not so hyperextended at least, has been asked many times to stop yelling at staff. states he doesn't want to be here. call light in reach.
--- NOTE | 2021-05-26 18:44 | NUR ---
pt sitting in a recliner most of the day, he is irritable and yells at staff when he doesn't want something. he is irrational, refused mask all day and yelled when asked about it, yells when no one is in the room, wont listen or cooperate. call light in reach, but pt wont use it.
--- NOTE | 2021-05-27 01:57 | NUR ---
ASSUMED CARE OF PT AT 1900. PATIENT WAS SITTING IN CHAIR AND COMPLAINING OF LEG PAIN/NUMBNESS. MOVED PATIENT VIA LIFT TO BED IN SEMI-FOWLERS. MULTIPLE WOUNDS SECRETING SEROUS FLUID THAT WERE CLEANED AND BANDAIDS PLACED OVER THEM. MOSTLY UNEVENTFUL NIGHT. PATIENT CONTINUES TO REFUSE MASK DESPITE LOUD WHEEZES AND VISIBLE DIFFICULTY WITH BREATHING WHILE ASLEEP.
[2021-05-27 04:12] LABS: BASOPHILS PERCENT AUTO 0 % (0-2); EOSINOPHILS PERCENT AUTO 0 % (0-6); Hematocrit 30.1 % (37.0-53.0); Hemoglobin 8.8 g/dL (13.5-17.5); IMMATURE GRAN ABSOLUTE AUTO 0.04 K/mm3 (0.00-0.10); IMMATURE GRAN PERCENT AUTO 1 % (0-1); LYMPHOCYTES ABSOLUTE AUTO 1.05 K/mm3 (0.84-5.20); LYMPHOCYTES PERCENT AUTO 12 % (21-46); MONOCYTES ABSOLUTE AUTO 0.81 K/mm3 (0.16-1.47); MONOCYTES PERCENT AUTO 9 % (4-13); Mean Corpuscular HGB 22.7 pg (26.0-34.0); Mean Corpuscular HGB Conc 29.2 g/dL (31.5-36.5); Mean Corpuscular Volume 78 fL (80-100); Mean Platelet Volume 8.7 fL (9.1-12.4); NEUTROPHILS ABSOLUTE AUTO 6.91 K/mm3 (1.96-9.15); NEUTROPHILS PERCENT AUTO 78 % (41-73); NRBC ABSOLUTE 0.03 K/mm3 (0.00-0.02); NRBC Auto 0.3 /100 WBC (0.0-0.2); Platelet Count 304 K/mm3 (150-400); RDW Coefficient Variation 18.9 % (11.7-14.2); RDW Standard Deviation 51.4 fL (35.1-46.3); Red Blood Cell Count 3.87 M/mm3 (4.30-5.90); White Blood Cell Count 8.81 K/mm3 (4.00-11.30)
[2021-05-27 04:28] LABS: PCO2 Arterial 60.3 mmHg (35-45); PO2 Arterial 66.4 mmHg (80-100); pH Blood Arterial 7.34 (7.35-7.45)
[2021-05-27 04:35] LABS: Bun/Creatinine Ratio 44.2 (12.0-20.0); Calcium, Blood 8.9 mg/dL (8.5-10.1); Creatinine, Blood 1.99 mg/dL (0.60-1.20); Percent Saturation 3.1 % (20.0-50.0); Potassium, Blood 4.1 mmol/L (3.5-5.5)
--- NOTE | 2021-05-27 18:53 | NUR ---
SUMMARY- PT UP IN CHAIR AFTER 1330- HAD A BED BATH. ANN CLEANSSED, BOTTOM WITH CAKED BM. MILD RED APPLIED CREAM. VSS, WEANED OFF OXYGEN, SATTING 92%. CONTINUING TO DIURESE. LUNGS CLEAR, PERIODS OF EXP WHEEZE ESPECIALLY DURING RESTING EPISODES. PT WANTED TO GO HOME AMA THIS PM AND ENCOURAGED HIM TO STAY UNTIL THE AM.
--- NOTE | 2021-05-27 20:08 | NUR ---
ASSUMED CARE OF PATIENT AT APPROXIMATELY 1905 FROM EMMETT Garcia RN. PATIENT ALERT AND ORIENTED X4; AGITATED AT TIMES; FORGETFUL AT TIMES. PATIENT DENIES PAIN, NUMBESS, TINGLING, DIZZINESS OR NAUSEA. PATIENT IN CHAIR; REPORTS HE PREFERS TO SLEEP THERE TONIGHT. AFIB ON TELE; OXYGEN SATURATION ABOVE 90% ON ROOM AIR; REFUSES TO USE CPAP/BIPAP TONIGHT FOR SLEEP. PG L ARM S/L. URINARY CATHETHER DRAINING CLEAR YELLOW URINE; PATIENT DRINKING MULTIPLE DRINKS.
[2021-05-28 05:05] LABS: BASOPHILS PERCENT AUTO 0 % (0-2); EOSINOPHILS ABSOLUTE AUTO 0.03 K/mm3 (0.00-0.68); EOSINOPHILS PERCENT AUTO 0 % (0-6); Hematocrit 32.8 % (37.0-53.0); Hemoglobin 9.7 g/dL (13.5-17.5); IMMATURE GRAN ABSOLUTE AUTO 0.06 K/mm3 (0.00-0.10); IMMATURE GRAN PERCENT AUTO 1 % (0-1); LYMPHOCYTES ABSOLUTE AUTO 2.02 K/mm3 (0.84-5.20); LYMPHOCYTES PERCENT AUTO 18 % (21-46); MONOCYTES ABSOLUTE AUTO 1.14 K/mm3 (0.16-1.47); MONOCYTES PERCENT AUTO 10 % (4-13); Mean Corpuscular HGB 23.2 pg (26.0-34.0); Mean Corpuscular HGB Conc 29.6 g/dL (31.5-36.5); Mean Corpuscular Volume 79 fL (80-100); Mean Platelet Volume 8.6 fL (9.1-12.4); NEUTROPHILS ABSOLUTE AUTO 7.96 K/mm3 (1.96-9.15); NEUTROPHILS PERCENT AUTO 71 % (41-73); Platelet Count 312 K/mm3 (150-400); RDW Coefficient Variation 18.9 % (11.7-14.2); RDW Standard Deviation 52.8 fL (35.1-46.3); Red Blood Cell Count 4.18 M/mm3 (4.30-5.90); White Blood Cell Count 11.21 K/mm3 (4.00-11.30)
[2021-05-28 05:27] LABS: Albumin, Blood 3.5 g/dL (3.4-5.0); Albumin/Globulin Ratio 0.9 (0.8-1.8); Bilirubin, Total 0.4 mg/dL (0.1-1.0); Bun/Creatinine Ratio 51.1 (12.0-20.0); Calcium, Blood 8.5 mg/dL (8.5-10.1); Creatinine, Blood 1.35 mg/dL (0.60-1.20); Globulin, Blood 4.1 g/dL (2.2-4.0); Magnesium, Blood 2.7 mg/dL (1.6-2.4); Potassium, Blood 3.6 mmol/L (3.5-5.5); Total Protein, Blood 7.6 g/dL (6.4-8.2)
--- NOTE | 2021-05-28 06:40 | NUR ---
PATIENT SLEPT ABOUT SEVEN HOURS LAST NIGHT. VSS. NO ACUTE CHANGES.
--- NOTE | 2021-05-28 11:30 | NUR ---
NOON ASSESSMENT NOON ASSESSMENT IS UNCHANGED SINCE AM SHIFT ASSESSMENT. LUNG SOUNDS ARE DIMINISHED BUT CLEAR IN THE UPPER LOBES, EXPIRATORY WHEEZES PRESENT TO R MIDDLE AND BILATERAL LOWER LOBES.
--- NOTE | 2021-05-28 13:17 | NUR ---
BLE DRESSING CHANGED DRESSINGS TO BLE CHANGED. NON ADHERANT PADS PLACED, ABD PADS FOR ADDITIONAL DRAINAGE ABSORPTION, KERLEX AND JOSE WRAP PLACED. BANDAID PLACED TO WOUND ON DORSAL PORTION OF R FOOT. SIGNIFICANT CLEAR DRAINAGE NOTED FROM WOUNDS.
--- NOTE | 2021-05-28 16:44 | NUR ---
EVENING ASSESSMENT PT CONDITION UNCHANGED SINCE PREVIOUS ASSESSMENT.
--- NOTE | 2021-05-28 17:48 | NUR ---
SHIFT SUMMARY PT IS CONTINUING TO GET IV BUMEX FOR FLUID OVERLOAD. HE HAS HAD GOOD OUTPUT. PT HAS BEEN ON RA T/O THE DAY. PT HAS SAT UP THE THE CHAIR T/O THE DAY. PT IS ABLE TO REPOSITION HIMSELF IN THE CHAIR. AWAITING POSSIBLE CHANGE TO MEDICAL STATUS. WILL MONITOR UNTIL REPORT TO NIA SPENCER.
--- NOTE | 2021-05-28 18:45 | NUR ---
INCREASED HR PT'S HR INCREASED TO 125 AT APPROXIMATELY 1830. PT DENIES SYMPTOMS OF ELEVATED HR. NO CHEST PAIN OR SOB. WILL CONTINUE TO MONITOR.
--- NOTE | 2021-05-29 01:50 | NUR ---
THE PATIENT WAS SATURATING AT 77% WHILE SLEEPING IN THE CHAIR. THE PATIENT HAD BEEN REFUSING OXYGEN DURING THE DAY WHEN HE WOULD OCCASIONALY DESATURATE TO THE MID 80s%. RN WENT INTO THE PT'S ROOM TO EVALUATE THE PAIENT WHILE HE WAS SLEEPING. WHEN PATIENT WOKE UP HIS SATURATIONS RETURNED TO THE LOW 90%. PATIENT WAS INFORMED HE NEEDS TO WEAR HIS OXYGEN WHILE SLEEPING BUT REFUSED AND INFORMED RN HIS WILL LET HER KNOW WHEN HE NEEDS THE OXYGEN. WITH OXYGEN BACK UP RN LEFT THE ROOM. RN WHEN TO TALK TO THE CHARGE NURSE AND INFORMED HER THE SITTUATION AND STATED RN KEEP TRYING WITH THE PATIENT AND DOCUMENT WHAT WAS GOING ON. RN STATED SHE WILL CONTINUE TO MONITOR.
--- NOTE | 2021-05-29 02:30 | NUR ---
PATIENT WAS STILL SATURATING INTO THE 70% AND WOULD OCCASSIONALY DROP DOWN TO THE 60s%. RN WENT BACK IN AND HAD A CONVERSATION WITH THE PATIENT AND INFORMED HIM THAT HE WOULD EITHER WEAR HIS NASAL CANNULA OR SHE WOULD HAVE TO COME IN TO WAKE HIM UP EACH TIME HIS OXYGEN DROPS TO REMIND HIM TO TAKE DEEP BREATHS. PATIENT THEN AGREED TO PUT THE NC AT 3L HIFLO. RN WILL CONTINUE TO MONITOR .
[2021-05-29 05:24] LABS: BASOPHILS ABSOLUTE AUTO 0.01 K/mm3 (0.00-0.23); BASOPHILS PERCENT AUTO 0 % (0-2); EOSINOPHILS PERCENT AUTO 1 % (0-6); Hematocrit 34.3 % (37.0-53.0); IMMATURE GRAN ABSOLUTE AUTO 0.03 K/mm3 (0.00-0.10); IMMATURE GRAN PERCENT AUTO 0 % (0-1); LYMPHOCYTES ABSOLUTE AUTO 2.24 K/mm3 (0.84-5.20); LYMPHOCYTES PERCENT AUTO 20 % (21-46); MONOCYTES ABSOLUTE AUTO 1.16 K/mm3 (0.16-1.47); MONOCYTES PERCENT AUTO 10 % (4-13); Mean Corpuscular HGB 22.9 pg (26.0-34.0); Mean Corpuscular HGB Conc 29.2 g/dL (31.5-36.5); Mean Corpuscular Volume 79 fL (80-100); Mean Platelet Volume 8.4 fL (9.1-12.4); NEUTROPHILS ABSOLUTE AUTO 7.91 K/mm3 (1.96-9.15); NEUTROPHILS PERCENT AUTO 69 % (41-73); Platelet Count 325 K/mm3 (150-400); RDW Coefficient Variation 18.3 % (11.7-14.2); RDW Standard Deviation 51.2 fL (35.1-46.3); Red Blood Cell Count 4.37 M/mm3 (4.30-5.90); White Blood Cell Count 11.45 K/mm3 (4.00-11.30)
[2021-05-29 05:49] LABS: Albumin, Blood 3.4 g/dL (3.4-5.0); Anion Gap 2 mmol/L (6-16); Blood Urea Nitrogen 51 mg/dL (8-24); Bun/Creatinine Ratio 40.2 (12.0-20.0); CO2, Blood 38 mmol/L (21-32); Calcium, Blood 8.8 mg/dL (8.5-10.1); Chloride, Blood 96 mmol/L (98-108); Creatinine, Blood 1.27 mg/dL (0.60-1.20); Glomerular Filtration Rate >60 (60-); Glucose, Blood 116 mg/dL (70-99); Magnesium, Blood 2.6 mg/dL (1.6-2.4); Phosphorus, Blood 4.4 mg/dL (2.5-4.9); Potassium, Blood 3.1 mmol/L (3.5-5.5); Sodium, Blood 136 mmol/L (136-145)
--- NOTE | 2021-05-29 06:49 | NUR ---
SHIFT SUMMARY PATIENT IS SLEEPING IN THE CHAIR. PATIENT WAS ASKED IF HE WANTED TO BE TRANSFERED TO THE BED BUT HE STATED HE PREFERS TO SLEEP IN THE CHAIR. PATIENT WAS DESATUATING AND WAS REFUSING OXYGEN SEE PREVIOUS NOTES. PATIENT IS ON 3L NC. VITALS WERE STABLE EXCEPT WHEN HE WOULD FALL ASLEELP HIS SATURATIONS WOULD DROP. NO COMPLAINTS OF PAIN. CHAIR IS LOCKED IN POSITION. WILL CONTINUE TO MONITOR.
--- NOTE | 2021-05-29 08:35 | NUR ---
DR LESLIE IN TO SEE PT.
--- NOTE | 2021-05-29 09:45 | NUR ---
PT IN TO SEE PT.
--- NOTE | 2021-05-29 10:43 | NUR ---
REPORT GIVEN TO [facility] ZARINA RN. PT TRANSFERRING TO ROOM 354, NO TELE.
--- NOTE | 2021-05-29 11:04 | NUR ---
PT TRANSFERRED TO ROOM 354
--- NOTE | 2021-05-29 12:49 | NUR ---
At approx 1040, Mr. Perez Becker (Kenny) was transported via chair to the medical floor. He does not appear to be in acute distress. He is alert and oriented x 4. He denies pain at this time and reports feeling "okay". He is very pleasant and cooperative. His speech is clear and communication is goal directed. He denies SOB while sitting up in his chair. He is morbidly obese. He was oriented to room. He has a johnson in place with physician's order to discontinue johnson cath. Mr. Becker appears to be resting comfortable. Will continue to monitor.
[2021-05-30 04:42] LABS: BASOPHILS ABSOLUTE AUTO 0.01 K/mm3 (0.00-0.23); BASOPHILS PERCENT AUTO 0 % (0-2); EOSINOPHILS PERCENT AUTO 1 % (0-6); Hematocrit 35.5 % (37.0-53.0); Hemoglobin 10.5 g/dL (13.5-17.5); IMMATURE GRAN ABSOLUTE AUTO 0.03 K/mm3 (0.00-0.10); IMMATURE GRAN PERCENT AUTO 0 % (0-1); LYMPHOCYTES ABSOLUTE AUTO 2.65 K/mm3 (0.84-5.20); LYMPHOCYTES PERCENT AUTO 26 % (21-46); MONOCYTES ABSOLUTE AUTO 1.15 K/mm3 (0.16-1.47); MONOCYTES PERCENT AUTO 11 % (4-13); Mean Corpuscular HGB 23.2 pg (26.0-34.0); Mean Corpuscular HGB Conc 29.6 g/dL (31.5-36.5); Mean Corpuscular Volume 78 fL (80-100); Mean Platelet Volume 8.9 fL (9.1-12.4); NEUTROPHILS ABSOLUTE AUTO 6.17 K/mm3 (1.96-9.15); NEUTROPHILS PERCENT AUTO 61 % (41-73); NRBC ABSOLUTE 0.02 K/mm3 (0.00-0.02); NRBC Auto 0.2 /100 WBC (0.0-0.2); Platelet Count 311 K/mm3 (150-400); RDW Coefficient Variation 18.6 % (11.7-14.2); Red Blood Cell Count 4.53 M/mm3 (4.30-5.90); White Blood Cell Count 10.11 K/mm3 (4.00-11.30)
[2021-05-30 05:02] LABS: Albumin, Blood 3.4 g/dL (3.4-5.0); Anion Gap 5 mmol/L (6-16); Blood Urea Nitrogen 40 mg/dL (8-24); Bun/Creatinine Ratio 37.7 (12.0-20.0); CO2, Blood 34 mmol/L (21-32); Calcium, Blood 8.6 mg/dL (8.5-10.1); Chloride, Blood 98 mmol/L (98-108); Creatinine, Blood 1.06 mg/dL (0.60-1.20); Glomerular Filtration Rate >60 (60-); Glucose, Blood 97 mg/dL (70-99); Phosphorus, Blood 3.3 mg/dL (2.5-4.9); Sodium, Blood 137 mmol/L (136-145)
--- NOTE | 2021-05-30 07:40 | NUR ---
PT appears stable on room air, indep in room. PT has bilat le wounds with clean dry intact rico wraps.Morbid Obesity.. IDDM
--- NOTE | 2021-05-30 11:48 | NUR ---
PER DR LESLIE PT TO CONTINUE HOME COMBINATION MED TRIAMTERENE/HCTZ 37.5/25MG. MEDICATION DOSE VERIFIED WITH HOME PHARMACY.
== END 2021-05-30 14:41 | disposition home health service (06) | DRG 291 ==
LOC: ER 20:42 → PCU 05-25 00:30 → MEDS 05-25 00:31 → PCU 05-25 12:03 → MEDS 05-29 11:14
PROVIDERS: Emergency Medicine; Internal Medicine; Nurse Practitioner Acute Care; ADMIT Internal Medicine
PROC: 5A09357 Assistance with Respiratory Ventilation, Less than 24 Consecutive Hours, Continuous Positive Airway Pressure (ICD-10-PCS; principal; 2021-05-25)
DX: I13.0 Hypertensive heart and chronic kidney disease with heart failure and stage 1 through stage 4 chronic kidney disease, or unspecified chronic kidney disease (principal); I50.33 Acute on chronic diastolic (congestive) heart failure; J96.01 Acute respiratory failure with hypoxia; J96.02 Acute respiratory failure with hypercapnia; N17.9 Acute kidney failure, unspecified; E87.1 Hypo-osmolality and hyponatremia; J44.1 Chronic obstructive pulmonary disease with (acute) exacerbation; E87.2 Acidosis; I48.20 Chronic atrial fibrillation, unspecified; Z20.822 Contact with and (suspected) exposure to COVID-19; E87.5 Hyperkalemia; N18.30 Chronic kidney disease, stage 3 unspecified; E11.22 Type 2 diabetes mellitus with diabetic chronic kidney disease; D63.1 Anemia in chronic kidney disease; G47.33 Obstructive sleep apnea (adult) (pediatric); R62.50 Unspecified lack of expected normal physiological development in childhood; F60.9 Personality disorder, unspecified; E11.42 Type 2 diabetes mellitus with diabetic polyneuropathy; E66.01 Morbid (severe) obesity due to excess calories; D50.9 Iron deficiency anemia, unspecified; K21.9 Gastro-esophageal reflux disease without esophagitis; F17.290 Nicotine dependence, other tobacco product, uncomplicated; Z90.89 Acquired absence of other organs; Z88.8 Allergy status to other drugs, medicaments and biological substances; Z79.52 Long term (current) use of systemic steroids; Z79.899 Other long term (current) drug therapy; Z79.82 Long term (current) use of aspirin; Z79.84 Long term (current) use of oral hypoglycemic drugs
CPT/HCPCS: 0202U; 36415; 36600; 51702; 71045; 76770; 80048; 80053; 80069; 81003; 82728; 82803; 82947; 83540; 83550; 83735; 83880; 84132; 84145; 84484; 85025; 85027; 93005; 93010; 94640; 94660; 94760; 94762; 96374-59; 96375-59; 97110; 97161; 97165; 97530; 97535; 99285-25; A9270; C1751; C8929; J0610; J1815; J2920; J2930; J7030; J7512; Q9957

== ENCOUNTER 2021-07-11 16:00 | Emergency (ER) | payer OTHER ==
[~2021-07-11] VITALS: Ht 180.3 cm; Wt 181.4 kg
[2021-07-11 16:36] LABS: BASOPHILS ABSOLUTE AUTO 0.04 K/mm3 (0.00-0.23); BASOPHILS PERCENT AUTO 1 % (0-2); EOSINOPHILS ABSOLUTE AUTO 0.15 K/mm3 (0.00-0.68); EOSINOPHILS PERCENT AUTO 2 % (0-6); Hematocrit 33.4 % (37.0-53.0); Hemoglobin 9.9 g/dL (13.5-17.5); IMMATURE GRAN ABSOLUTE AUTO 0.04 K/mm3 (0.00-0.10); IMMATURE GRAN PERCENT AUTO 1 % (0-1); LYMPHOCYTES ABSOLUTE AUTO 1.07 K/mm3 (0.84-5.20); LYMPHOCYTES PERCENT AUTO 13 % (21-46); MONOCYTES ABSOLUTE AUTO 0.48 K/mm3 (0.16-1.47); MONOCYTES PERCENT AUTO 6 % (4-13); Mean Corpuscular HGB Conc 29.6 g/dL (31.5-36.5); Mean Corpuscular Volume 74 fL (80-100); Mean Platelet Volume 8.3 fL (9.1-12.4); NEUTROPHILS ABSOLUTE AUTO 6.44 K/mm3 (1.96-9.15); NEUTROPHILS PERCENT AUTO 78 % (41-73); Platelet Count 363 K/mm3 (150-400); RDW Coefficient Variation 19.2 % (11.7-14.2); RDW Standard Deviation 51.2 fL (35.1-46.3); White Blood Cell Count 8.22 K/mm3 (4.00-11.30)
[2021-07-11 17:15] LABS: Alanine Aminotransfer (ALT/SGP 23 U/L (12-78); Albumin, Blood 3.2 g/dL (3.4-5.0); Albumin/Globulin Ratio 0.8 (0.8-1.8); Alk Phos 144 U/L (50-136); Anion Gap 7 mmol/L (6-16); Aspartate Aminotrans (AST/SGOT 12 U/L (12-37); Bilirubin, Total 0.6 mg/dL (0.1-1.0); Blood Urea Nitrogen 18 mg/dL (8-24); Bun/Creatinine Ratio 15.8 (12.0-20.0); CO2, Blood 28 mmol/L (21-32); Calcium, Blood 8.7 mg/dL (8.5-10.1); Chloride, Blood 92 mmol/L (98-108); Creatinine, Blood 1.14 mg/dL (0.60-1.20); Globulin, Blood 4.1 g/dL (2.2-4.0); Glomerular Filtration Rate >60 (60-); Glucose, Blood 176 mg/dL (70-99); Potassium, Blood 4.2 mmol/L (3.5-5.5); Sodium, Blood 127 mmol/L (136-145); Total Protein, Blood 7.3 g/dL (6.4-8.2); Troponin I <0.015 ng/mL (0.000-0.040)
== END 2021-07-11 22:11 | disposition home or self-care (01) ==
LOC: ER 16:00
PROVIDERS: Emergency Medicine
DX: R06.00 Dyspnea, unspecified (principal); E87.1 Hypo-osmolality and hyponatremia; J44.9 Chronic obstructive pulmonary disease, unspecified; I11.0 Hypertensive heart disease with heart failure; I50.9 Heart failure, unspecified; E11.42 Type 2 diabetes mellitus with diabetic polyneuropathy; I48.91 Unspecified atrial fibrillation; Z88.8 Allergy status to other drugs, medicaments and biological substances; Z79.899 Other long term (current) drug therapy; Z79.82 Long term (current) use of aspirin; F17.220 Nicotine dependence, chewing tobacco, uncomplicated; F17.210 Nicotine dependence, cigarettes, uncomplicated
CPT/HCPCS: 36415; 71045; 80053; 83880; 84484; 85025; 93005; 93010; 99284-25

== ENCOUNTER 2021-07-20 11:10 | Emergency (ER) | payer OTHER ==
[~2021-07-20] VITALS: Ht 180.3 cm; Wt 184.2 kg
[2021-07-20 12:20] LABS: BASOPHILS ABSOLUTE AUTO 0.06 K/mm3 (0.00-0.23); BASOPHILS PERCENT AUTO 1 % (0-2); EOSINOPHILS ABSOLUTE AUTO 0.19 K/mm3 (0.00-0.68); EOSINOPHILS PERCENT AUTO 2 % (0-6); Hematocrit 33.2 % (37.0-53.0); Hemoglobin 9.6 g/dL (13.5-17.5); IMMATURE GRAN ABSOLUTE AUTO 0.03 K/mm3 (0.00-0.10); IMMATURE GRAN PERCENT AUTO 0 % (0-1); LYMPHOCYTES PERCENT AUTO 12 % (21-46); MONOCYTES ABSOLUTE AUTO 0.84 K/mm3 (0.16-1.47); MONOCYTES PERCENT AUTO 10 % (4-13); Mean Corpuscular HGB 21.2 pg (26.0-34.0); Mean Corpuscular HGB Conc 28.9 g/dL (31.5-36.5); Mean Corpuscular Volume 74 fL (80-100); Mean Platelet Volume 8.3 fL (9.1-12.4); NEUTROPHILS ABSOLUTE AUTO 6.06 K/mm3 (1.96-9.15); NEUTROPHILS PERCENT AUTO 74 % (41-73); Platelet Count 434 K/mm3 (150-400); RDW Coefficient Variation 18.5 % (11.7-14.2); Red Blood Cell Count 4.52 M/mm3 (4.30-5.90); White Blood Cell Count 8.18 K/mm3 (4.00-11.30)
[2021-07-20 12:44] LABS: Alanine Aminotransfer (ALT/SGP 24 U/L (12-78); Albumin, Blood 3.2 g/dL (3.4-5.0); Albumin/Globulin Ratio 0.7 (0.8-1.8); Alk Phos 146 U/L (50-136); Anion Gap 7 mmol/L (6-16); Aspartate Aminotrans (AST/SGOT 10 U/L (12-37); Bilirubin, Total 0.6 mg/dL (0.1-1.0); Blood Urea Nitrogen 16 mg/dL (8-24); Bun/Creatinine Ratio 13.3 (12.0-20.0); CO2, Blood 28 mmol/L (21-32); Calcium, Blood 8.8 mg/dL (8.5-10.1); Chloride, Blood 88 mmol/L (98-108); Globulin, Blood 4.7 g/dL (2.2-4.0); Glomerular Filtration Rate >60 (60-); Glucose, Blood 104 mg/dL (70-99); Sodium, Blood 123 mmol/L (136-145); Total Protein, Blood 7.9 g/dL (6.4-8.2)
== END 2021-07-20 15:15 | disposition home or self-care (01) ==
LOC: ER 11:10
PROVIDERS: Emergency Medicine
DX: R60.0 Localized edema (principal); E11.9 Type 2 diabetes mellitus without complications; I11.0 Hypertensive heart disease with heart failure; I50.9 Heart failure, unspecified; J44.9 Chronic obstructive pulmonary disease, unspecified; F17.220 Nicotine dependence, chewing tobacco, uncomplicated; Z79.899 Other long term (current) drug therapy
CPT/HCPCS: 36415; 71045; 80053; 83880; 85025; 96374; 99285-25

== ENCOUNTER 2021-08-16 08:50 | Inpatient (IN) | payer OTHER ==
[~2021-08-16] VITALS: Ht 180.3 cm; Wt 167.8 kg
[2021-08-16 09:36] LABS: BASOPHILS ABSOLUTE AUTO 0.08 K/mm3 (0.00-0.23); BASOPHILS PERCENT AUTO 1 % (0-2); EOSINOPHILS ABSOLUTE AUTO 0.38 K/mm3 (0.00-0.68); EOSINOPHILS PERCENT AUTO 4 % (0-6); Hematocrit 41.4 % (37.0-53.0); Hemoglobin 11.5 g/dL (13.5-17.5); IMMATURE GRAN ABSOLUTE AUTO 0.06 K/mm3 (0.00-0.10); IMMATURE GRAN PERCENT AUTO 1 % (0-1); LYMPHOCYTES ABSOLUTE AUTO 1.06 K/mm3 (0.84-5.20); LYMPHOCYTES PERCENT AUTO 11 % (21-46); MONOCYTES ABSOLUTE AUTO 0.88 K/mm3 (0.16-1.47); MONOCYTES PERCENT AUTO 9 % (4-13); Mean Corpuscular HGB 20.9 pg (26.0-34.0); Mean Corpuscular HGB Conc 27.8 g/dL (31.5-36.5); Mean Corpuscular Volume 75 fL (80-100); Mean Platelet Volume 7.7 fL (9.1-12.4); NEUTROPHILS PERCENT AUTO 75 % (41-73); Platelet Count 488 K/mm3 (150-400); RDW Coefficient Variation 19.6 % (11.7-14.2); RDW Standard Deviation 50.7 fL (35.1-46.3); Red Blood Cell Count 5.49 M/mm3 (4.30-5.90); White Blood Cell Count 9.76 K/mm3 (4.00-11.30)
[2021-08-16 10:25] LABS: Influenza A, PCR NEGATIVE (NEGATIVE); Influenza B, PCR NEGATIVE (NEGATIVE); Resp Syncytial Virus, PCR NEGATIVE (NEGATIVE); SARS-Cov-2 (COVID-19) PCR, MMC NEGATIVE (NEGATIVE)
[2021-08-16 10:41] LABS: Magnesium, Blood 2.2 mg/dL (1.6-2.4)
[2021-08-16 10:45] LABS: Bun/Creatinine Ratio 12.1 (12.0-20.0); Creatinine, Blood 3.05 mg/dL (0.60-1.20)
[2021-08-16 10:56] LABS: Base Excess Venous -9.3 mmol/L; Bicarbonate Venous 17.3 mmol/L (24.0-30.0); pH Blood Venous 7.24 (7.34-7.37)
[2021-08-16] MEDS ORDERED: BENADRYL25 M1 PO (10:58)
[2021-08-16 15:43] LABS: Bun/Creatinine Ratio 12.3 (12.0-20.0); Creatinine, Blood 3.08 mg/dL (0.60-1.20); Potassium, Blood 6.7 mmol/L (3.5-5.5)
--- NOTE | 2021-08-16 18:35 | NUR ---
ANDERSON HELD PT HAD TAKEN IT THIS AM BEFIRE ARRIVING
--- NOTE | 2021-08-17 00:10 | NUR ---
ASSUMED CARE OF PT AT 1900. A/OX4 BUT DROWSY WITH PERIODS OF ANGER. MAINTAINS ABOVE 90% ON RA, HOWEVER DESATS WHILE SLEEPING INTO MID-HIGH 80'S BUT REFUSES TO WEAR OXYGEN. +2 PITTING EDEMA ALL EXTREMITIES, CHRONIC VENOUS ULCERS THAT ARE WEEPING (COVERED DURING DAYSHIFT). +1 PEDAL AND RADIAL PULSES BL. AFIB AVG 90'S. POTASSIUM HAS SHIFTED FROM 8.0 TO 6.5, CALL WAS MADE AND INSULIN/D50, CALCIUM GLUC, ALBUTEROL ORDERED AND GIVEN TO FURTHER DECREASE K. PATIENT REFUSES TO LAY IN BED, RATHER SIT IN RECLINER. WONT ELEVATE LEGS. WILL UPDATE CHANGES OCCUR.
[2021-08-17 00:53] LABS: Calcium, Blood 8.6 mg/dL (8.5-10.1); Creatinine, Blood 2.85 mg/dL (0.60-1.20); Potassium, Blood 6.3 mmol/L (3.5-5.5)
[2021-08-17 04:15] LABS: Hematocrit 38.6 % (37.0-53.0); Mean Corpuscular HGB 20.8 pg (26.0-34.0); Mean Corpuscular HGB Conc 28.5 g/dL (31.5-36.5); Mean Corpuscular Volume 73 fL (80-100); Mean Platelet Volume 7.7 fL (9.1-12.4); Platelet Count 460 K/mm3 (150-400); RDW Coefficient Variation 19.2 % (11.7-14.2); RDW Standard Deviation 49.5 fL (35.1-46.3); Red Blood Cell Count 5.29 M/mm3 (4.30-5.90); White Blood Cell Count 7.91 K/mm3 (4.00-11.30)
[2021-08-17 04:37] LABS: Bun/Creatinine Ratio 13.6 (12.0-20.0); Calcium, Blood 8.5 mg/dL (8.5-10.1); Creatinine, Blood 2.95 mg/dL (0.60-1.20); Magnesium, Blood 2.3 mg/dL (1.6-2.4); Potassium, Blood 5.8 mmol/L (3.5-5.5)
--- NOTE | 2021-08-17 18:38 | NUR ---
REPORT CALLED TO MINDY SPENCER ON MEDICAL FLOOR. PT WILL TRANSFER TO FLOOR WITH ALL BELONGINGS, ON 2L O2 VIA NASAL CANNULA. PT A/O X3, NADN. VSS
--- NOTE | 2021-08-18 04:07 | NUR ---
BIJAN REMAINED STABLE OVERNIGHT, VEHEMENTLY REFUSED TO HAVE HIS 2L NC ON. HIS SPO2 REMAINED BETWEEN 92-94 DURING THE SHIFT. I CHANGED THE DRESSING ON BOTH LEGS.THEY ARE DRY AND INTACT. HE SLEPT ON THE RECLINER CHAIR DURING THE SHIFT.
[2021-08-18 06:18] LABS: Calcium, Blood 8.7 mg/dL (8.5-10.1); Creatinine, Blood 2.75 mg/dL (0.60-1.20)
[2021-08-18 10:28] LABS: Bun/Creatinine Ratio 17.4 (12.0-20.0); Calcium, Blood 8.6 mg/dL (8.5-10.1); Creatinine, Blood 2.65 mg/dL (0.60-1.20)
--- NOTE | 2021-08-18 17:20 | NUR ---
PT MOSTLY PLEASANT TODAY. K+ IMPROVED TODAY. DID GIVE D-50 AND INSULIN PER EMAR. PT AMBULATING SELF TO BATHROOM. NO C/O PAIN TODAY. VSS. HAS BEEN DRINKING SEVERAL PEPSIES TODAY. BECOMES QUITE IRRITABLE IF NOT GETTING. SEEMS TO NOT AFFECT CBG MUCH. PT STILL NOT NEEDING INSULIN PER S/S. HAS BEEN IN RECLINER CHAIR. I REPLACED IV TODAY. BED IN LOW POSITION, CALL LITE IN REACH, CALLS APPROP.
--- NOTE | 2021-08-19 06:33 | NUR ---
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 BASED ON YESTERDAY'S LAB HIS K+ IS TRENDING DOWN. HIS POC GLUCOSE WAS BELOW 130. HE WAS ADMINISTERED HIS MEDS AND WAS COOPERATIVE
[2021-08-19 06:34] LABS: Bun/Creatinine Ratio 19.7 (12.0-20.0); Calcium, Blood 8.9 mg/dL (8.5-10.1); Creatinine, Blood 2.49 mg/dL (0.60-1.20); Potassium, Blood 4.6 mmol/L (3.5-5.5)
[2021-08-19] MEDS ORDERED: LOKELMA PO (10:42)
--- NOTE | 2021-08-19 18:19 | NUR ---
Alert and oriented x3 , able to make needs known. Denies any pain. One person assist with ADLs.Blood sugar was normal limit, not requiring insulin. Bilateral lower extremities dressing was done and the sites are CDI. Vital signs are stable. Patient discharged home in a stable condition and discharge instruction was acknowledged.
== END 2021-08-19 14:16 | disposition home or self-care (01) | DRG 683 ==
LOC: ER 08:50 → MEDS 12:10 → PCU 12:10 → MEDS 08-17 19:35
PROVIDERS: Internal Medicine; Nurse Practitioner Acute Care; Student in an Organized Health Care Education/Training Program; ADMIT Hospitalist
DX: N17.9 Acute kidney failure, unspecified (principal); I13.0 Hypertensive heart and chronic kidney disease with heart failure and stage 1 through stage 4 chronic kidney disease, or unspecified chronic kidney disease; I50.32 Chronic diastolic (congestive) heart failure; Z68.43 Body mass index [BMI] 50.0-59.9, adult; E87.1 Hypo-osmolality and hyponatremia; E87.2 Acidosis; L03.116 Cellulitis of left lower limb; L03.115 Cellulitis of right lower limb; I48.20 Chronic atrial fibrillation, unspecified; N18.4 Chronic kidney disease, stage 4 (severe); E87.5 Hyperkalemia; Z20.822 Contact with and (suspected) exposure to COVID-19; E11.22 Type 2 diabetes mellitus with diabetic chronic kidney disease; G47.33 Obstructive sleep apnea (adult) (pediatric); J44.9 Chronic obstructive pulmonary disease, unspecified; F17.210 Nicotine dependence, cigarettes, uncomplicated; E66.01 Morbid (severe) obesity due to excess calories; E78.5 Hyperlipidemia, unspecified; E11.42 Type 2 diabetes mellitus with diabetic polyneuropathy; R62.50 Unspecified lack of expected normal physiological development in childhood; K21.9 Gastro-esophageal reflux disease without esophagitis; I87.2 Venous insufficiency (chronic) (peripheral); Z90.89 Acquired absence of other organs; Z88.8 Allergy status to other drugs, medicaments and biological substances; Z79.01 Long term (current) use of anticoagulants; Z91.19 Patient's noncompliance with other medical treatment and regimen; Z79.82 Long term (current) use of aspirin; Z79.84 Long term (current) use of oral hypoglycemic drugs; Z79.51 Long term (current) use of inhaled steroids; Z79.899 Other long term (current) drug therapy
CPT/HCPCS: 0241U; 36415; 71045; 80048; 82803; 82947; 83735; 83880; 84132; 84484; 85025; 85027; 93005; 93010; 94640; 94644; 94664; 94760; 94762; 96365; 96366; 96367; 96375; 99285-25; A9270; J0610; J0690; J1815; J1940; J7050; J7799

== ENCOUNTER 2021-08-21 16:18 | Inpatient (IN) | payer OTHER ==
[~2021-08-21] VITALS: Ht 180.3 cm; Wt 170.1 kg
[~2021-08-21 16:18] MED LIST changes: +BENADRYL25 M1 PO; +LOKELMA PO
[2021-08-21 18:13] LABS: Magnesium, Blood 2.2 mg/dL (1.6-2.4)
[2021-08-21 18:16] LABS: BASOPHILS ABSOLUTE AUTO 0.07 K/mm3 (0.00-0.23); BASOPHILS PERCENT AUTO 1 % (0-2); EOSINOPHILS PERCENT AUTO 4 % (0-6); Hematocrit 35.8 % (37.0-53.0); Hemoglobin 10.4 g/dL (13.5-17.5); IMMATURE GRAN ABSOLUTE AUTO 0.09 K/mm3 (0.00-0.10); IMMATURE GRAN PERCENT AUTO 1 % (0-1); LYMPHOCYTES ABSOLUTE AUTO 1.13 K/mm3 (0.84-5.20); LYMPHOCYTES PERCENT AUTO 13 % (21-46); MONOCYTES ABSOLUTE AUTO 0.48 K/mm3 (0.16-1.47); MONOCYTES PERCENT AUTO 5 % (4-13); Mean Corpuscular HGB 21.2 pg (26.0-34.0); Mean Corpuscular HGB Conc 29.1 g/dL (31.5-36.5); Mean Corpuscular Volume 73 fL (80-100); NEUTROPHILS ABSOLUTE AUTO 6.88 K/mm3 (1.96-9.15); NEUTROPHILS PERCENT AUTO 76 % (41-73); NRBC ABSOLUTE 0.03 K/mm3 (0.00-0.02); NRBC Auto 0.3 /100 WBC (0.0-0.2); Platelet Count 528 K/mm3 (150-400); RDW Coefficient Variation 19.1 % (11.7-14.2); White Blood Cell Count 9.05 K/mm3 (4.00-11.30)
[2021-08-21 18:36] LABS: Alanine Aminotransfer (ALT/SGP 19 U/L (12-78); Albumin, Blood 2.5 g/dL (3.4-5.0); Albumin/Globulin Ratio 0.5 (0.8-1.8); Alk Phos 147 U/L (50-136); Anion Gap 13 mmol/L (6-16); Aspartate Aminotrans (AST/SGOT 23 U/L (12-37); Bilirubin, Total 0.4 mg/dL (0.1-1.0); Blood Urea Nitrogen 57 mg/dL (8-24); Bun/Creatinine Ratio 17.7 (12.0-20.0); CO2, Blood 16 mmol/L (21-32); Calcium, Blood 8.1 mg/dL (8.5-10.1); Chloride, Blood 89 mmol/L (98-108); Creatinine, Blood 3.22 mg/dL (0.60-1.20); Globulin, Blood 4.8 g/dL (2.2-4.0); Glomerular Filtration Rate 21 (60-); Glucose, Blood 80 mg/dL (70-99); Potassium, Blood 5.5 mmol/L (3.5-5.5); Sodium, Blood 118 mmol/L (136-145); Total Protein, Blood 7.3 g/dL (6.4-8.2)
[2021-08-21 20:54] LABS: Troponin I <0.015 ng/mL (0.000-0.040)
--- NOTE | 2021-08-22 04:04 | NUR ---
PATIENT IS A&o X4. PATIENT IS SLOW TO RESPOND AND SPEAKS SLOWLY. PATIENT CAN AMBULATE WITH A WALKER AND ASSIST OF ONE. PATIENTS IV ACCESS WAS PATENT INITIALLY BUT WHEN TRYING TO RUN FLUIDS WAS NOT PATENT. REVOLVING FIELD ASSEMBLER WAS UNABLE TO START A IV. ICU CHARGE NURSE WILL ATTEMPT. AYLEENT REPORTS PAIN TO HIS RIGHT RIBS FROM FALL. XRAY WAS NEGATIVE. PATIENT REFUSES TO USE URINAL AND INSISTS ON AMBULATING TO THE BATHROOM. BED ALARM SET AND BED IN LOWEST POSITION.
--- NOTE | 2021-08-22 05:42 | NUR ---
PATIENT WAS FINALLY ABLE TO GET COMFORTABLE AND REST. IV PLACED BY CLINICAL SERVICES ASSISTANT. FLUIDS RUNNING. WILL CONTINUE TO MONITOR.
[2021-08-22 06:24] LABS: BASOPHILS ABSOLUTE AUTO 0.07 K/mm3 (0.00-0.23); BASOPHILS PERCENT AUTO 1 % (0-2); EOSINOPHILS ABSOLUTE AUTO 0.41 K/mm3 (0.00-0.68); EOSINOPHILS PERCENT AUTO 5 % (0-6); Hematocrit 34.7 % (37.0-53.0); Hemoglobin 10.2 g/dL (13.5-17.5); IMMATURE GRAN ABSOLUTE AUTO 0.12 K/mm3 (0.00-0.10); IMMATURE GRAN PERCENT AUTO 1 % (0-1); LYMPHOCYTES ABSOLUTE AUTO 1.12 K/mm3 (0.84-5.20); LYMPHOCYTES PERCENT AUTO 13 % (21-46); MONOCYTES ABSOLUTE AUTO 0.86 K/mm3 (0.16-1.47); MONOCYTES PERCENT AUTO 10 % (4-13); Mean Corpuscular HGB 21.2 pg (26.0-34.0); Mean Corpuscular HGB Conc 29.4 g/dL (31.5-36.5); Mean Corpuscular Volume 72 fL (80-100); Mean Platelet Volume 7.8 fL (9.1-12.4); NEUTROPHILS ABSOLUTE AUTO 5.98 K/mm3 (1.96-9.15); NEUTROPHILS PERCENT AUTO 70 % (41-73); Platelet Count 503 K/mm3 (150-400); RDW Coefficient Variation 19.1 % (11.7-14.2); RDW Standard Deviation 48.8 fL (35.1-46.3); Red Blood Cell Count 4.82 M/mm3 (4.30-5.90); White Blood Cell Count 8.56 K/mm3 (4.00-11.30)
[2021-08-22 06:50] LABS: Albumin, Blood 2.7 g/dL (3.4-5.0); Albumin/Globulin Ratio 0.5 (0.8-1.8); Bilirubin, Total 0.3 mg/dL (0.1-1.0); Bun/Creatinine Ratio 21.1 (12.0-20.0); Calcium, Blood 8.4 mg/dL (8.5-10.1); Creatinine, Blood 2.65 mg/dL (0.60-1.20); Total Protein, Blood 7.7 g/dL (6.4-8.2)
[2021-08-22 09:27] LABS: Source, Urine Clean Catch
[2021-08-22 09:33] LABS: Appearance, Urine Clear (Clear); Bilirubin, Urine Neg (Neg); Blood, Urine 4+ (Neg); Glucose Qualitative, Urine Neg (Neg); Ketones, Urine Neg (Neg); Leukocyte Esterase, Urine 2+ (Neg); Nitrite, Urine Neg (Neg); Protein, Urine Neg (Neg); Specific Gravity, Urine 1.015 (1.003-1.022); Urobilinogen, Urine NORM (Normal)
[2021-08-22 09:39] LABS: Color, Urine Pale Yellow (P-Yellow)
[2021-08-22 09:40] LABS: White Blood Cells, Urine 0-2 /hpf (0-5)
[2021-08-22 09:41] LABS: Bacteria Mod /hpf; Hyaline Casts 0-2 /lpf (0-2); Squamous Epithelial Cells Rare /hpf (Few)
[2021-08-22 09:42] LABS: Other Crystals Mod /hpf
[2021-08-22 13:14] LABS: Albumin, Blood 2.5 g/dL (3.4-5.0); Anion Gap 14 mmol/L (6-16); Blood Urea Nitrogen 51 mg/dL (8-24); CO2, Blood 21 mmol/L (21-32); Calcium, Blood 8.3 mg/dL (8.5-10.1); Chloride, Blood 86 mmol/L (98-108); Creatinine, Blood 2.22 mg/dL (0.60-1.20); Glomerular Filtration Rate 33 (60-); Glucose, Blood 147 mg/dL (70-99); Phosphorus, Blood 5.3 mg/dL (2.5-4.9); Potassium, Blood 3.8 mmol/L (3.5-5.5); Sodium, Blood 121 mmol/L (136-145)
--- NOTE | 2021-08-22 17:16 | NUR ---
PT AOX4 AND COOPERATIVE OF CARE. PT DID NOT LIKE LAYING IN BED AND RECLINER WAS FOUND. PT HAS BEEN SITTING IN RECLINER ALL DAY AND IS MUCH MORE COMFORTABLE. PT HAD LEGS WRAPPED DUE TO WEEPING BY STUDENT NURSE. PT TREATED FOR BACK PAIN PER EMAR. NO DISTRESS NOTED AT THIS TIME WILL CONTINUE TO MONITOR.
[2021-08-22 18:32] LABS: Bun/Creatinine Ratio 26.2 (12.0-20.0); Calcium, Blood 8.4 mg/dL (8.5-10.1); Creatinine, Blood 1.91 mg/dL (0.60-1.20); Potassium, Blood 3.6 mmol/L (3.5-5.5)
--- NOTE | 2021-08-22 21:48 | NUR ---
PATIENTS HS FSBG WAS 150 REQUIRING NO COVERAGE. CHANGED PATIENTS DSG ON RLE. DSG WAS MOIST FROM WEEPING. REWRAPPED IN GAUZE AND JOSE WRAP.
--- NOTE | 2021-08-22 22:56 | NUR ---
PATIENT REQUESTED MORE PAIN MEDICATION. IV WAS DISLODGED. WILL ASK PHOTOGRAPHER SCIENTIFIC FOR PO MEDICATION SINCE PT IS DONE RECIEVING FLUIDS.
--- NOTE | 2021-08-23 04:56 | NUR ---
PATIENT HAS BEEN IRRITABLE AND YELLING OUT OF HIS ROOM OFF AND ON ALL SHIFT. PATIENT MAKES DERROGATORY STATEMENTS AND CURSES AT NURSING STAFF. PATIENT IS NOT RECEPTIVE TO EDUCATION OR REDIRECTION. A&O X4 VITALS ARE STABLE.
[2021-08-23 16:31] LABS: Albumin, Blood 2.5 g/dL (3.4-5.0); Anion Gap 10 mmol/L (6-16); Blood Urea Nitrogen 45 mg/dL (8-24); Bun/Creatinine Ratio 24.7 (12.0-20.0); CO2, Blood 26 mmol/L (21-32); Calcium, Blood 8.5 mg/dL (8.5-10.1); Chloride, Blood 88 mmol/L (98-108); Creatinine, Blood 1.82 mg/dL (0.60-1.20); Glomerular Filtration Rate 41 (60-); Glucose, Blood 128 mg/dL (70-99); Potassium, Blood 3.4 mmol/L (3.5-5.5); Sodium, Blood 124 mmol/L (136-145)
--- NOTE | 2021-08-23 17:51 | NUR ---
PATIENT IS ALERT AND ORIENTED AND COOPERATIVE WITH CARE. ON TELEMETRY AFIB AT 91 BPM. PATIENT IS UP TO THE BATHROOM SBA. SITTING UP IN THE RECLINER THIS SHIFT. HE HAS BEEN PLEASANT THIS SHIFT. WOUND CARE TO BLE PROVIDED. WILL CONTINUE TO MONITOR
--- NOTE | 2021-08-24 04:02 | NUR ---
PT REMAINS ORIENTED X4, SLEPT FOR SOME OF THE NIGHT, C/O GENERALIZED PRURITUS, TREATED PER EMAR. PT IS WET FROM BLE WEEPING, REFUSED TO REMOVE SHORTS FROM HOME. PT ALLOWED ME TO CLEAN AND VISUALIZE HIS SCROTUM WHILE STANDING AT TOILET WHICH WAS RED, AND BLEEDING FROM DRY CRACKED SKIN, CREAM APPLIED. PT CONTINUES TO REFUSE TO LAY FLAT IN BED TO CLEAN AND VISUALIZE ANN AREA. PT FOUND SLOUCHED DOWN IN RECLINER MULTIPLE TIMES, NEEDS HELP ADJUSTING BACK INTO RECLINER, CONTINUES TO REFUSE BED AND ELEVATED LE PER MD RECOMENDATION. LUNGS ARE DIM WITH CRACKLES, WHEEZE AND PRODUCTIVE COUGH. WILL CONT TO MONITOR.
[2021-08-24 06:40] LABS: Albumin, Blood 2.6 g/dL (3.4-5.0); Anion Gap 12 mmol/L (6-16); Blood Urea Nitrogen 49 mg/dL (8-24); Bun/Creatinine Ratio 25.7 (12.0-20.0); CO2, Blood 25 mmol/L (21-32); Calcium, Blood 9.1 mg/dL (8.5-10.1); Chloride, Blood 90 mmol/L (98-108); Creatinine, Blood 1.91 mg/dL (0.60-1.20); Glomerular Filtration Rate 39 (60-); Glucose, Blood 103 mg/dL (70-99); Phosphorus, Blood 4.9 mg/dL (2.5-4.9); Sodium, Blood 127 mmol/L (136-145)
--- NOTE | 2021-08-24 17:56 | NUR ---
SHIFT SUMMARY 40 YEAR MALE ADMITTED WITH HYPONATREMIA ACUTE ON CHRONIC. 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 PT HAS HX FOR DM, CKD, A-FIB, SLEEP APNEA AND HTN. PT IS A&O BUT DOES SEEM CHILDLIKE AT TIMES AND OFTEN REFUSES PERSONAL HYGIENE CARE. PT SKIN IS DRY, FLAKY AND "ITCHY" ACCORDING TO PT AND HE ALSO HAS 4+ WHEEPING EDEMA IN BOTH LOWER EXTREMETIES, LEGS ARE WRAPPED. PT REPORTS HE WAS GETTING HH DRSG CHANGES TWICE WEEKLY AT HOME. D/C PLANNING IS WORKING ON GETTING PT HOME WITH [facility]. NO OTHER CHANGES TO REPORT AT THIS TIME.
--- NOTE | 2021-08-25 05:52 | NUR ---
SHIFT SUMMARY PT AOX2-3 AT TIMES AND WATCHING A TABLET WHILE YELLING AND CURSING AT THE MOVIE ON THE SCREEN , AT THE START OF THIS SHIFT. PT. IS VERY IMPULSIVE AND RUDE TO STAFF THIS SHIFT BUT EASILY REDIRECTED. PT. BILATERAL LE WERE WEEPING TO THE POINT HOUSEKEEPING HAD TO MOP THE FLOOR. THIS NURSE CHANGED THE LEFT LEG DRESSING BUT THE TPYE OF SUPPLIES THAT THE PT REQUESTED WERE LIMITED. PT. RESTED SOME THIS SHFIT. PT. C/O ITICHING AND MEDICATED PER EMAR THIS SHIFT. THIS NURSE WILL CONTINUE TO MONITOR UNITL REPORT IS GIVEN.
[2021-08-25 05:53] LABS: Albumin, Blood 2.8 g/dL (3.4-5.0); Anion Gap 12 mmol/L (6-16); Blood Urea Nitrogen 49 mg/dL (8-24); Bun/Creatinine Ratio 25.8 (12.0-20.0); CO2, Blood 24 mmol/L (21-32); Calcium, Blood 9.1 mg/dL (8.5-10.1); Chloride, Blood 89 mmol/L (98-108); Glomerular Filtration Rate 39 (60-); Glucose, Blood 100 mg/dL (70-99); Phosphorus, Blood 4.3 mg/dL (2.5-4.9); Potassium, Blood 4.3 mmol/L (3.5-5.5); Sodium, Blood 125 mmol/L (136-145)
--- NOTE | 2021-08-25 17:48 | NUR ---
SHIFT SUMMARY PT UP FOR SHOWER TODAY AND DRSG CHANGE TO BLE AND TOELRATED WELL. LEGS WRAPPED WITH 3 LARGE EXUDRY ABSORBANT PADS, WRAPPED WITH KURLEX AND THEN JOSE WRAPS. MD IN OT SEE PT AND INCREASED DIURETICS TO ADDRESS FLUID. RN MADE AWARE THAT PT WAS USING SMOKELESS TOBACCO IN HIS ROOM. INFORMED PT THAT THE HOSPITAL WAS A TOBACCO FREE CAMPUS AND HE WOULD NOT BE ALLOWED TO USE "CHEW" IN HIS ROOM. RN DID OFFER TO YADIRA ORDERS FROM MD FOR NICOTINE PATCH BUT PT DECLINED. PT DID HAVE A FEW ANGRY OUTBURSTS TODAY AND WAS OVERHEARD YELLING AND CUSSING IN HIS ROOM R/T HIS FRUSTRATIONS WITH NOT BEING ABLE TO GET PEPSI, VENDING MACHINE FOOD, AND USE TOBACCO. WHEN RN ENTERED ROOM PT WAS QUICK TO DEESCALATED AND HAVE APPROPRIATE CONVERSATION. PT HAS BEEN MOSTLY PLEASANT AND COOPERATIVE WITH CARE NO OTHER CHANGES TO REPORT AT THIS TIME.
--- NOTE | 2021-08-25 19:43 | NUR ---
PT WAS IN ROOM IRATE AND CURSING WHILE THROWING OBJECTS IN RAGE YELLING, "I CAN'T DO ANYTHING IN THIS [facility] ([place], [place])! I JUST WANT A PAIR OF SCISSORS AND PEPSI, NOT DIET PEPSI." PT. WAS UNABLE TO BE REDIRECTED AND PULLED OUT A POCKET KNIFE WHILE YELLING AT STAFF. THIS NURSE INFORMED STAFF TO EXIT THE ROOM AND INFORMED THE CHARGE NURSE TO CALL SECURITY. TOBACCO WAS ALSO IN THE PT'S ROOM BUT CHARGE NURSE AND SECURITY AWARE.
--- NOTE | 2021-08-25 21:56 | NUR ---
PT. MEDICATED PER EMAR WITH 3 STAFF MEMBERS PRESENT FOR SAFETY. PT. WAS COOPERATIVE WITH CARE AND NO REDIRECTION NEEDED AT THIS TIME. PRIOR TO MULTIPLE STAFF ARRIVAL THE PT. REMAINED IRATE AND THROWING OBJECTS. NO OBJECTS WERE THROWN ONCE MORE STAFF WAS PRESENT.
[2021-08-26 04:32] LABS: BASOPHILS PERCENT AUTO 1 % (0-2); EOSINOPHILS ABSOLUTE AUTO 0.56 K/mm3 (0.00-0.68); EOSINOPHILS PERCENT AUTO 6 % (0-6); Hematocrit 38.1 % (37.0-53.0); Hemoglobin 11.4 g/dL (13.5-17.5); IMMATURE GRAN ABSOLUTE AUTO 0.17 K/mm3 (0.00-0.10); IMMATURE GRAN PERCENT AUTO 2 % (0-1); LYMPHOCYTES ABSOLUTE AUTO 1.11 K/mm3 (0.84-5.20); LYMPHOCYTES PERCENT AUTO 12 % (21-46); MONOCYTES ABSOLUTE AUTO 0.87 K/mm3 (0.16-1.47); MONOCYTES PERCENT AUTO 10 % (4-13); Mean Corpuscular HGB 21.3 pg (26.0-34.0); Mean Corpuscular HGB Conc 29.9 g/dL (31.5-36.5); Mean Corpuscular Volume 71 fL (80-100); Mean Platelet Volume 8.3 fL (9.1-12.4); NEUTROPHILS ABSOLUTE AUTO 6.32 K/mm3 (1.96-9.15); NEUTROPHILS PERCENT AUTO 69 % (41-73); NRBC ABSOLUTE 0.02 K/mm3 (0.00-0.02); NRBC Auto 0.2 /100 WBC (0.0-0.2); Platelet Count 497 K/mm3 (150-400); RDW Coefficient Variation 20.5 % (11.7-14.2); RDW Standard Deviation 49.9 fL (35.1-46.3); Red Blood Cell Count 5.34 M/mm3 (4.30-5.90); White Blood Cell Count 9.13 K/mm3 (4.00-11.30)
--- NOTE | 2021-08-26 04:48 | NUR ---
SHIFT SUMMARY PT WAS ABLE TO CALM DOWN AND BE SOMEWHAT COOPERATIVE WITH CARE. PT. RESTED BETTER THIS SHIFT AND CURRENTLY SITTING IN THE CHAIR WATCHING TV. PT. DENIES ANY NEEDS AT THE MOMENT AND THIS NURSE WILL CONTINUE TO MONITOR UNTIL REPORT IS GIVEN.
[2021-08-26 05:37] LABS: Bun/Creatinine Ratio 28.2 (12.0-20.0); Calcium, Blood 9.3 mg/dL (8.5-10.1); Creatinine, Blood 1.95 mg/dL (0.60-1.20); Potassium, Blood 4.1 mmol/L (3.5-5.5)
--- NOTE | 2021-08-26 17:50 | NUR ---
SHIFT SUMMARY A&O, PT HAS BEEN MOSTLY PLEASANT AND COOPERATIVE WITH CARE PROVIDED BUT IS NON COMPLIANT WITH NEW ORDERS FOR FLUID RESTRICTION. PT CONTINUES TO OBTAIN HIS OWN DRINKS FROM SINK, AND HAD A FRIEND BRING IN DRINKS FROM OUTSIDE. DISCUSSED THE IMPORTANCE OF FLUID RESTRICTION BUT PT DOES NOT AGREE AND REPORTS HE WILL NOT RESTRICT HIS FLUIDS. PLANS FOR PT TO D/C HOME WITH HOME HEALTH DISCUSSED WITH MD AND PT AND PROBABLE FOR FRIDAY PER MD. NO OTHER CHANGES TO REPORT AT THIS TIME.
--- NOTE | 2021-08-27 05:26 | NUR ---
PT SLEPT IN HIS BED FOR MOST OF THE NIGHT, ORIENTED X4, WITH CHILDLIKE BX. PT DID NOT YELL OUT THIS SHIFT. USED HIS CALL LIGHT APPROPRIATELY. PT HAS EXTREME PRURITIS WITH BUMPS/SCABS ON HANDS, ARMS, BACK, ABD, BLE. CRUSTED AREAS OVER HANDS/FINGERS AND SCROTUM. SCROTUM IS DRY, CRACKED AND BLEEDING. PT STATES HE THINKS IT IS SCABIES. HOSPITALIST AWARE AND ADVISED THIS HVAC/R SERVICE TECHNICIAN TO PASS IT ON TO DAY SHIFT. PT HAS BEEN EDUCATED ON FLUID RESTRICTION BUT FAILS TO ADHERE. BLE WOUND CARE COMPLETED THIS SHIFT HIS DRESSINGS FROM THE DAY HAD BEEN SOAKED THROUGH. BLE WEEPING EDEMA CONTINUES. NO OTHER CHANGES TO REPORT. STAFF WILL CONT TO MONITOR.
[2021-08-27 09:09] LABS: Bun/Creatinine Ratio 31.7 (12.0-20.0); Calcium, Blood 9.2 mg/dL (8.5-10.1); Creatinine, Blood 1.99 mg/dL (0.60-1.20); Potassium, Blood 3.1 mmol/L (3.5-5.5)
--- NOTE | 2021-08-27 16:02 | NUR ---
DAY SHIFT SUMMARY PT WORKED WITH PHYSICAL THERAPY TODAY. ABLE TO TRANSFER SELF FROM BED TO CHAIR AND BACK. PHYSICAL THERAPY ASK THAT PT NOT AMBULATE HIMSELF TO THE BATHROOM OR OTHER SIMILAR DISTANCES WITHOUT STANDBY ASSISTANCE DUE TO PIDE GAIT AND REFUSAL OF USE OF MOBILITY AID. PT IS ON FLUID RESTRICTION OF 1500 ML DAILY. NON COMPLIANT WITH FLUID RESTRICTIONS. PT TAKES MEDS RX, CALL LIGHT WITHIN REACH.
--- NOTE | 2021-08-27 18:45 | NUR ---
WOUND CARE BILATERAL LOWERE EXTREMETIES WEEPING EDEMA. DRESSINGS REMOVED AND LEGS CLEANSED. DRESSING REPLACED.
--- NOTE | 2021-08-27 21:49 | NUR ---
PT. STARTED THE SHIFT UPSET ABOUT BEING 1500ML OVER FLUID RESTRICTIONS AND NOT GETTING A PEPSI AT THE START OF THIS SHIFT. PT. COMPRIMISED WITH SODA OVER WATER IINI SMALL SIPS FOR MEDS FOR THIS NURSE. AT THE MOMENT PT. CALLED ABOUT VOMIT WITH RED COLOR NOTICED BUT ALSO HAS A CUP WITH RED LIQUID AT BEDSIDE WELL A BOTTLE WITH TOBACCO IN IT. PT. EDUCATED ON THE IMPORTANCE OF THE FLUID RESTRICTION AND STOPPING THE USE OF TOBACCO DURING CARE, PT NOT ACCEPTING. NEW BLAKET GIVEN AND VOMIT CLEANED UP, THIS NURSE WILL CONTINUE TO MONITOR.
[2021-08-28 06:01] LABS: Bun/Creatinine Ratio 29.8 (12.0-20.0); Calcium, Blood 9.1 mg/dL (8.5-10.1); Creatinine, Blood 2.35 mg/dL (0.60-1.20); Potassium, Blood 3.6 mmol/L (3.5-5.5)
--- NOTE | 2021-08-28 06:48 | NUR ---
SHIFT SUMMARY PT HAD NO MORE EPISODES OF N/V AND WAS ABLE TO REST SOME THIS SHIFT. PT. VERBALIZED UNDERSTANDING THE FLUID RESTRICTION IN PLACE AND CURRENTLY AWAKE IN BED. PT DENIES ANY NEEDS AND REPORT TO BE GIVEN.
--- NOTE | 2021-08-28 15:50 | NUR ---
Received referral from nurse resident care spec (Chantal Mace) on 08/27/2021. Patient is to discharge 08/28/2021 with orders for home health and elected [facility]. Contacted patient at number provided on demographic sheet to further discuss the above. Patient is agreeable to the above. Discussed homebound status definition with patient. Patient verbalized understanding. Discussed what home health is vs what it is not (in home caregivers/housekeeping). Patient verbalized understanding. Discussed the next steps in the process of an initial assessment to determine frequency of visits. Again patient verbalized understanding. Offered a chance for patient to ask questions regarding the above of which there were none. Gathered all supporting documentation for referral (face sheet, face to face, med list, H&P, discharge summary, and most recent PT assessment) and sent to [facility] for review. No further interventions required. Mary Reina Referral Liaison
--- NOTE | 2021-08-28 16:22 | NUR ---
DAY SHIFT SUMMARY PT WAS TO BE DC'D TODAY, POSSIBLE PLACEMENT AVAILABLE WITH SNF FOR TOMORROW. PT AGREED TO STAY TONIGHT TO BE PLACED WITH SNF TOMORROW. UNNA BOOTS APPLIED TO LOWER EXTREMITIES BILATERALLY PER MD ORDER. PT ABLE TO GET INTO SHOWER TODAY. FACE SHEET FAXED TO DR BRENDON LEWIS'S OFFICE FOR NEPHROLOGY INITAL APPOINTMENT. CALL LIGHT WITHIN REACH.
--- NOTE | 2021-08-29 06:08 | NUR ---
SHIFT SUMMARY PT. AOX3 AND UPSET ABOUT NOT BEING DISCHARGED HOME. PT NOT COMPLIANT WITH FLUID RESTRICTIONS OR TOBACCO USE. PT. C/O ITCHING AND MEDICATED PER EMAR FOR EFFECTIVE RELIEF. PT. RESTED WITH LEGS ELEVATED IN BED SOME THIS SHIFT AND CURRENTLY ASLEEP SNORING. THIS NURSE WILL CONTINUE TO MONITOR UNTIL REPORT IS GIVEN.
[2021-08-29] MEDS ORDERED: AMMONIUM LACTATE1 ML TOP (10:42)
--- NOTE | 2021-08-29 11:08 | NUR ---
Discharge Summary AOx4, pleasant with care. Noncompliant with fluid restrictions. Wound care to BLE completed prior to discharge today. D/C paperwork was reviewed yesterday by JOHANNA Kidd. This RN reviewed changes to meds. New med list printed and given to patient. Will be escorted by [employer] PLUMBER HELPER via w/c with all personal belongings. Belonging slip given to patient, patient is aware that item needs to be signed for and picked up from Security. New med faxed to [facility] per patient request.
== END 2021-08-29 11:20 | disposition home or self-care (01) | DRG 683 ==
LOC: ER 16:18 → MEDS 16:19 → ER 16:19 → MEDS 16:19
PROVIDERS: Internal Medicine; Physician Assistant; ADMIT Internal Medicine
DX: N17.9 Acute kidney failure, unspecified (principal); E87.1 Hypo-osmolality and hyponatremia; I50.32 Chronic diastolic (congestive) heart failure; Z68.43 Body mass index [BMI] 50.0-59.9, adult; N18.4 Chronic kidney disease, stage 4 (severe); E11.22 Type 2 diabetes mellitus with diabetic chronic kidney disease; I89.0 Lymphedema, not elsewhere classified; J44.9 Chronic obstructive pulmonary disease, unspecified; E87.6 Hypokalemia; E78.5 Hyperlipidemia, unspecified; I48.91 Unspecified atrial fibrillation; E11.40 Type 2 diabetes mellitus with diabetic neuropathy, unspecified; Z79.82 Long term (current) use of aspirin; Z79.899 Other long term (current) drug therapy; F17.210 Nicotine dependence, cigarettes, uncomplicated; Z88.8 Allergy status to other drugs, medicaments and biological substances; Z98.890 Other specified postprocedural states; S20.211A Contusion of right front wall of thorax, initial encounter; W01.190A Fall on same level from slipping, tripping and stumbling with subsequent striking against furniture, initial encounter; F17.220 Nicotine dependence, chewing tobacco, uncomplicated; E66.01 Morbid (severe) obesity due to excess calories; G47.33 Obstructive sleep apnea (adult) (pediatric); D63.1 Anemia in chronic kidney disease; Z23 Encounter for immunization
CPT/HCPCS: 36415; 71101; 76770; 80048; 80053; 80069; 81001; 82947; 83735; 83880; 84484; 85025; 87086; 90686; 93005; 93010; 94640; 94664; 94760; 96372; 96374; 96375; 97110; 97116; 97162; 97165; 97530-CQ; 97535; 99285-25; A9270; G0008; G0378; J1644; J2405; J3010; J7030; J7040

== ENCOUNTER 2021-09-07 00:57 | Emergency (ER) | payer OTHER ==
[~2021-09-07] VITALS: Ht 180.3 cm; Wt 161.5 kg
[~2021-09-07 00:57] MED LIST changes: +AMMONIUM LACTATE1 ML TOP
== END 2021-09-07 03:16 | disposition home or self-care (01) ==
LOC: ER 00:57
DX: M54.12 Radiculopathy, cervical region (principal); I48.92 Unspecified atrial flutter; J44.9 Chronic obstructive pulmonary disease, unspecified; E11.40 Type 2 diabetes mellitus with diabetic neuropathy, unspecified; I11.0 Hypertensive heart disease with heart failure; I50.9 Heart failure, unspecified; F17.220 Nicotine dependence, chewing tobacco, uncomplicated; Z88.8 Allergy status to other drugs, medicaments and biological substances; Z79.899 Other long term (current) drug therapy; Z79.82 Long term (current) use of aspirin
CPT/HCPCS: 71045; 93005; 93010; 99284-25; A9270

== ENCOUNTER → 2021-09-14 | Outpatient (CLI) | payer OTHER | END | disposition home or self-care (01) | LOC: LAB SHORT 13:10 | DX: L03.115 Cellulitis of right lower limb (principal) | CPT/HCPCS: 87070; 87077; 87147; 87186; 87205 ==